=== PATIENT | male | born 1945 | race Caucasian/White ===

== ENCOUNTER 2020-01-14 12:19 | Emergency (ER) | payer MEDICARE, SELFPAY ==
[2020-01-14 12:26] VITALS: BP 141/85; PULSE 56; RESP 16; TEMP 36.6; O2SAT 95; BMI 30.5
--- NOTE | 2020-01-14 12:31 | ED_ITS ---
Entered by Carrie Cantu, acting as scribe for Clifton Pierce DO Jan 14, 2020 12:19 HPI - General Adult General: Chief complaint: General Medical Stated complaint: NUMB ON RIGHT SIDE Time Seen by Provider: 01/14/20 12:39 History of Present Illness: HPI narrative: 74 yo male presents with numbness from the right side of his neck down to his right knee. Pt states that this has been going on for about 45 minutes. Pt states that he has a history of hypertension. He denies any other symtpoms. No difficulty speaking, swallowing or walking. He only reports a mild parathesia in the R arm and leg. Denies visual difficulties or changes. MD complaint: right sided numbness Onset (ago): minute(s) (45) Location: neck, upper extremity and lower extremity Radiation: neck Severity: mild Quality: other (numb) Relieving factors: none Exacerbating factors: none Associated symptoms: Reports no associated symptoms; Deny chest pain, dyspnea, malaise, nausea, rash or vomiting Review of Systems Const: Denies: fever, chills, body aches, change in appetite, fatigue or malaise ENMT: Denies: throat pain, ear pain, nasal discharge or nasal congestion Card: Denies: chest pain, edema, shortness of breath on exertion or shortness of breath when lying down Resp: Denies: shortness of breath, productive cough or non-productive cough GI: Denies: abdominal pain, nausea, vomiting, vomiting blood, coffee grounds in vomit, diarrhea, constipation, bloating, blood in stool or black tarry stool : Denies: flank pain, painful urination, urinary frequency or urinary urgency Skin/Breast: Denies: rash or itching PFSH ED PFSH: Medical History (Updated 01/14/20 @ 16:43 by Clifton Pierce DO) Cancer Hypertension MRSA infection Pneumonia Renal insufficiency Surgical History (Updated 01/14/20 @ 12:58 by Carrie Cantu) H/O hernia repair H/O shoulder surgery History of carpal tunnel surgery History of colon surgery Social History Smoking and tobacco status: former smoker Physical Exam Const: COMMON NORMALS: no apparent distress GENERAL APPEARANCE: cooperative and comfortable ORIENTATION/CONSCIOUSNESS: Yes awake, Yes oriented to person, Yes oriented to place and Yes oriented to time HENMT: COMMON NORMALS: normocephalic, head/scalp atraumatic, hearing grossly normal bilaterally, external ears normal, EAC's normal, TM's normal bilaterally, nasal mucous membranes and turbinates normal, moist oral mucous membranes and oropharynx normal HEAD & SCALP: normocephalic and atraumatic NOSE: nasal mucous membranes and turbinates normal EXTERNAL EAR: Yes external ears normal EXTERNAL AUDITORY CANAL: EAC's normal TYMPANIC MEMBRANE: TM's normal bila terally Eye: COMMON NORMALS: PERRL, EOMs intact bilaterally, conjunctivae normal and no scleral icterus CONJUNCTIVA: Yes conjunctivae normal PUPIL: Yes PERRL Neck/C-Spine: COMMON NORMALS: full ROM, no lymphadenopathy, supple and no JVD Lymph: LYMPHATIC: no lymphadenopathy noted and no lymphedema noted Resp: COMMON NORMALS: normal respiratory effort, no retractions, no use of accessory muscles and clear to auscultation bilaterally AUSCULTATION: clear t o auscultation bilaterally Cardio: COMMON NORMALS: no JVD, regular rate, regular rhythm and no murmurs RATE: regular rate RHYTHM: regular rhythm GI: COMMON NORMALS: soft to palpation and no hepatosplenomegaly AUSCULTATION: Yes normoactive bowel sounds PALPATION: Yes soft, No tender, No guarding and Yes no hepatosplenomegaly Extremity: COMMON NORMALS: normal to inspection, normal capillary refill, no clubbing, cyanosis or edema, no calf tenderness and no pedal edema Neuro: SENSORIUM/ORIENTATION: Yes oriented to person, Yes oriented to place and Yes oriented to time Skin: COMMON NORMALS: no rashes or lesions noted GENERAL SKIN EXAM: no rashes or lesions noted Course Vital Signs: Vital signs: Vital Signs Temperature 97.9 F 01/14/20 12:26 Pulse Rate 72 01/14/20 16:49 Respiratory Rate 15 01/14/20 16:49 Blood Pressure 150/87 01/14/20 16:49 Pulse Oximetry 97 01/14/20 16:49 MDM - General Adult MDM Narrative: Medical decision making narrative: Patient is stroke score of 1 for his paresthesias other than that he is completely normal. He is already on Plavix and a statin. We will continue his Plavix. I had recommended that we g et an echo and carotid we will in the emergency room and then consider discharge she did not want a wait for this. While we are waiting for the techs to come in and see him he decided he would prefer to leave try to encourage him to stay to allow us to complete this and then discharge but he did not wish to. He has no further symptoms at this time return if he has any problems. Lab Data: Labs: Lab Results 01/14/20 01/14/20 Range/Units 12:40 12:40 WBC 9.3 (4.0-10.0) 10^3/ uL RBC 5.16 (4.1-5.3) 10^6/u L Hgb 14.8 (11.7-16.6) g/dL Hct 43.7 (42.0-52.0) % MCV 84.7 (80-94) fL MCH 28.7 (28.0-34.0) pg MCHC 33.9 (30.0-36.0) g/dL RDW 12.9 (12.1-15.1) % Plt Count 253 (130-400) 10^3/c mm MPV 10.5 H (7.4-10.4) fL Neut % (Auto) 60.7 % Lymph % (Auto) 26.8 % White % (Auto) 5.4 % Eos % (Auto) 5.0 % Baso % (Auto) 1.0 % Neut # (Auto) 5.6 (1.8-7.7) 10^3/u L Lymph # (Auto) 2.5 (0.8-4.8) 10^3/u L White # (Auto) 0.5 (0.2-0.9) 10^3/u L Eos # (Auto) 0.5 (0.0-0.8) 10^3/u L Baso # (Auto) 0.1 (0.0-0.1) 10^3/u L Nucleated RBC % (a uto) 0 % Nucleated RBCs # 0.0 /100WBC Sodium 142 (136-145) mmol/L Potassium 3.0 L (3.5-5.1) mmol/L Chloride 99 (98-107) mmol/L Carbon Dioxide 31 H (22-29) mmol/L Anion Gap 15.0 (5-19) BUN 23 (8-23) mg/dL Creatinine 1.6 H (0.7-1.2) mg/dL Glucose 127 H (65-115) mg/dL Calculated Osmolal ity 292 (285-295) mOsm/k g Calcium 10.2 (8.5-10.5) mg/dL Discharge Plan Discharge Patient Disposition: Home, Self-Care Clinical Impression: TIA (transient ischemic attack) Condition: Stable Prescriptions: New clopidogrel 75 mg tablet 75 mg PO DAILY Qty: 30 RF: 0 No Action meloxicam 15 mg Tablet RF: 0 simvastatin 40 mg Tablet 40 mg PO DAILY RF: 0 carvedilol 3.125 mg Tablet 3.125 mg PO BID RF: 0 Zoloft 25 mg Tablet 25 mg PO DAILY RF: 0 losartan-hydrochlorothiazide 100-25 mg Tablet 1 tab PO DAILY RF: 0 Discharge Orders: Discharge Order (Routine); Ordered 01/14/20 Ordered By: Clifton Pierce Referrals: Edgar Blackmon DO [Primary Care Provider] - Discharge Diet: Usual diet Discharge Activity: Increase activity as tolerated Activity Restrictions/Additional Instructions: Because you chose to left the emergency room early we were not able to complete your work-up. Follow-up with your primary care doctor as soon as you are able. Discharge Date/Time: 01/14/20 16:49 Coding Level of Care Code ED Anatomy Professor for Chg Fwd Exam Comprehensive NIH stroke score NIHSS Level Of Consciousness - 1a: 0 Level Of Consciousness Questions - 1b: Both Correct Level Of Consciousness Commands - 1c: Both Correct Best Gaze - 2: Normal Visual Rudolph - 3: No Visual Loss Facial Palsy - 4: Normal Motor Arm Right - 5: No Drift Motor Arm Left - 5: No Drift Motor Leg Right - 6: No Drift Motor Leg Left - 6: No Drift Limb Ataxia - 7: Absent Sensory - 8: Mild To Moderate Loss Best Language - 9: No Aphasia Dysarthia - 10: Normal Extinction And Inattention - 11: 0 Score Total Score: 1 The documentation recorded by the Pepe stevens Kialy, accurately reflects the service I personally performed and the decisions made by Stan lira Curtis L, DO Jan 14, 2020 12:19
[2020-01-14 12:45] VITALS: O2SAT 96
--- NOTE | 2020-01-14 12:57 | CT_ITS ---
WS: [id number] CT HEAD NONCONTRAST HISTORY: L sided numbness TECHNIQUE: Contiguous axial imaging performed through the brain in 2.5 mm imaging. Bone and soft tiss ue windows. Sagittal and coronal reformats reviewed. All CT scans at [facility] use at ast one of these dose optimization techniques: automated exposure control; mA and/or kV adjustment pe r patient size (includes targeted exams where dose is matched to clinical indication); or iterative r econstruction. DLP: 890.2 mGy.cm COMPARISON: 04/19/2019 No acute intracranial hemorrhage, midline shift or mass effect. Mild atrophy and chronic ischemic disease. Remote lacunar infarct LEFT basal ganglia. Ventricles: Normal size with no hydrocephalus. No inferior displacement of cerebellar tonsils. Paranasal sinuses: Small air-fluid level in the LEFT maxillary sinus. Mild bilateral mucoperiosteal t hickening in the ethmoid air cells. Mastoid air cells: Well pneumatized. Calvarium and scalp: Skull is intact with no soft tissue edema or swelling. Moderate atherosclerosis intracranial carotid arteries. CT/CT head wo con* [id number] IMPRESSION: 1. No acute intracranial hemorrhage or edema. 2. Mild atrophy and mild chronic microvascular ischemic disease.
[2020-01-14 13:14] LABS: Basophils # 0.1 10^3/uL (0.0-0.1); Eosinophils # 0.5 10^3/uL (0.0-0.8); Hematocrit 43.7 % (42.0-52.0); Hemoglobin 14.8 g/dL (11.7-16.6); Lymphocytes # 2.5 10^3/uL (0.8-4.8); Lymphocytes % 26.8 %; Mean Corpuscular HGB Conc 33.9 g/dL (30.0-36.0); Mean Corpuscular Hemoglobin 28.7 pg (28.0-34.0); Mean Corpuscular Volume 84.7 fL (80-94); Mean Platelet Volume 10.5 fL (7.4-10.4); Monocytes # 0.5 10^3/uL (0.2-0.9); Monocytes % 5.4 %; Neutrophils # 5.6 10^3/uL (1.8-7.7); Neutrophils % 60.7 %; Nucleated Red Blood Cells % 0 %; Platelet Count 253 10^3/cmm (130-400); Red Blood Count 5.16 10^6/uL (4.1-5.3); Red Cell Distribution Width 12.9 % (12.1-15.1); White Blood Count 9.3 10^3/uL (4.0-10.0)
[2020-01-14 13:23] LABS: Blood Urea Nitrogen 23 mg/dL (8-23); Calcium 10.2 mg/dL (8.5-10.5); Carbon Dioxide 31 mmol/L (22-29); Chloride 99 mmol/L (98-107); Glucose 127 mg/dL (65-115); Osmolality Calculated 292 mOsm/kg (285-295); Sodium 142 mmol/L (136-145)
[2020-01-14 16:49] VITALS: BP 150/87; PULSE 72; RESP 15; O2SAT 97
== END 2020-01-14 16:49 | disposition home or self-care (01) ==
PROVIDERS: Emergency Provider Family Medicine; Family Provider Electrodiagnostic Medicine; PCP Electrodiagnostic Medicine
DX: G45.9 Transient cerebral ischemic attack, unspecified (principal); I10 Essential (primary) hypertension; R29.701 NIHSS score 1; Z79.02 Long term (current) use of antithrombotics/antiplatelets; Z87.891 Personal history of nicotine dependence
CPT/HCPCS: 12345; 70450; 80048; 85025; 99282; 99283

== ENCOUNTER 2020-03-24 08:46 | Emergency (ER) | payer MEDICARE, SELFPAY ==
--- NOTE | 2020-03-24 08:53 | ED_ITS ---
HPI - Extremity Injury (Upper) General: Chief Complaint: Extremity Injury, Upper Stated Complaint: R HAND INJURY Time Seen by Provider: 03/24/20 08:53 Source: patient Mode of arrival: ambulatory Limitations: no limitations History of Present Illness: HPI narrative: Patient comes in with injury to the right hand. Patient reports he fell last night catching himself with outstret ched right hand. Patient reports that his fourth digit hurts a little bit with movement but patient overall is able to flex and move him without difficulty. Patient is concerned due to swelling and is about ready to go out of town so wanted to make sure there was no significant injury prior to leaving town. Patient did report also hitting head but denies any headache or concern of injury. Patient does take Plavix routinely. MD complaint: injury to: hand (right) Review of Systems General: Reports: 10 or more systems reviewed and unremarkable except in HPI and below Musc: Reports: extremity swelling (right hand) [facility] ED PFSH: Medical History (Updated 03/24/20 @ 09:41 by MILAN Hansen) Cancer Hypertension MRSA infection Pneumonia Renal insufficiency Surgical History (Updated 01/14/20 @ 12:58 by Carrie Cantu) H/O hernia repair H/O shoulder surgery History of carpal tunnel surgery History of colon surgery Social History Smoking and tobacco status: former smoker Physical Exam Const: COMMON NORMALS: no acute distress and patient oriented x3 GENERAL APPEARANCE: cooperative HENMT: COMMON NORMALS: normocephalic and Normal external nose present HEAD & SCALP: normal to inspection and normocephalic NOSE: Normal external nose present MOUTH: Normal oral and palatal mucosa present Eye: GENERAL EYE: appearance normal, both eyes and all related structures Neck/C-Spine: COMMON NORMALS: full ROM Chest: COMMONS NORMALS: normal inspection of the chest Resp: COMMON NORMALS: normal respiratory effort EFFORT & INSPECTION: Yes able to speak in complete sentences Cardio: COMMON NORMALS: regular rate and regular rhythm RATE: regular rate RHYTHM: regular rhythm GI: COMMON NORMALS: non-tender Back/Pelvis: COMMON NORMALS: thoracic and lumbar spine normal to inspection Extremity: NARRATIVE EXTREMITY EXAM: Mild swelling to the dorsal hand on the right side, good range of motion of the hand, normal tendon function, distal cap refill. Neuro: COMMON NORMALS: patient oriented x3 and moves all extremities Psych: COMMON NORMALS: mental status grossly normal and cooperative Skin: NARRATIVE SKIN EXAM: Abrasion to the right lateral eyebrow area. Course Vital Signs: Vital signs: Vital Signs Temperature 97.8 F 03/24/20 08:55 Pulse Rate 71 03/24/20 08:59 Respiratory Rate 18 03/24/20 08:55 Blood Pressure 187/91 03/24/20 08:55 Pulse Oximetry 97 03/24/20 08:55 MDM - Extremity Injury (Upper) [facility] Narrative: Medical decision making narrative: Patient comes in for evaluation of injury to the right hand. On exam we note some swelling to the dorsal hand. No obvious tenderness with palpation. Prompt capillary refill is noted. Good tendon function is noted. Differential diagnosis includes fracture, sprain, contusion. X-ray report notes that possible distal fracture of the fifth metacarpal but otherwise arthritic changes. Reviewed this with patient with recommendations with activity as tolerated and elastic wrap. Patient refused Sulaiman wrap and splint stated that it feels fine and he has had it broke before and it is done well. No obvious dislocation or displacement was noted in the bone, recommended follow-up as needed. Discharge Plan Discharge Patient Disposition: Home, Self-Care Clinical Impression: Boxer's metacarpal fracture, neck, closed Qualifiers: Encounter type: initial encounter Qualified Code(s): S62.339A - Displaced fracture of neck of unspecified metacarpal bone, initial encounter for closed fracture Condition: Stable Prescriptions: No Action clopidogrel 75 mg tablet 75 mg PO DAILY Qty: 30 RF: 0 meloxicam 15 mg Tablet RF: 0 simvastatin 40 mg Tablet 40 mg PO DAILY RF: 0 carvedilol 3.125 mg Tablet 3.125 mg PO BID RF: 0 Zoloft 25 mg Tablet 25 mg PO DAILY RF: 0 losartan-hydrochlorothiazide 100-25 mg Tablet 1 tab PO DAILY RF: 0 Discharge Orders: Discharge Order (Routine); Ordered 03/24/20 Ordered By: Malick Poe Referrals: Edgar Blackmon DO [Primary Care Provider] - Discharge Diet: Usual diet Discharge Activity: Increase activity as tolerated Activity Restrictions/Additional Instructions: Activity as tolerated. Wear a elastic wrap or splint as needed. Tylenol as needed for pain. Drink plenty of water with medications. Follow-up with primary care as needed. Return to the ER for worsening symptoms. Coding Level of Care Code ED Rake Operator for Chg Fwd Exam Comprehensive
[2020-03-24 08:55] VITALS: BP 187/91; PULSE 73; RESP 18; TEMP 36.6; O2SAT 97; BMI 30.5
[2020-03-24 08:59] VITALS: PULSE 71
--- NOTE | 2020-03-24 09:00 | XR_ITS ---
WS: [id number] XR hand RT min 3V* [id number] REASON FOR EXAM: injury FINDINGS: Degenerate changes of the distal phalangeal joints are seen. The fifth metacarpal shows anterior angulation and there is evidence of a defects suggesting this is a recent fracture correlation is recommended. There is degenerate changes of the first metacarpal car pal articulation. As well as the first metacarpal phalangeal junction. No additional fractures are seen. XR/XR hand RT min 3V* [id number] IMPRESSION: Deformity of the distal fifth metacarpal with questionable new fracture in this area. Osteoarthritic changes of the hand.
--- NOTE | 2020-03-24 09:09 | PC.NURSE ---
portable xray at bedside
== END 2020-03-24 09:45 | disposition home or self-care (01) ==
PROVIDERS: Emergency Provider Nurse Practitioner Family; Family Provider Electrodiagnostic Medicine; PCP Electrodiagnostic Medicine
DX: S62.336A Displaced fracture of neck of fifth metacarpal bone, right hand, initial encounter for closed fracture (principal); W19.XXXA Unspecified fall, initial encounter; Z79.02 Long term (current) use of antithrombotics/antiplatelets; I10 Essential (primary) hypertension; Z86.14 Personal history of Methicillin resistant Staphylococcus aureus infection; Z87.891 Personal history of nicotine dependence
CPT/HCPCS: 12345; 73130; 99281; 99282

== ENCOUNTER 2020-04-10 08:18 | Emergency (ER) | payer MEDICARE, SELFPAY ==
[2020-04-10 08:25] VITALS: BP 178/90; PULSE 75; RESP 17; TEMP 36.7; O2SAT 96; BMI 28.5
--- NOTE | 2020-04-10 08:35 | W.ED.EXTPRO ---
HPI - Extremity Problem General: Chief complaint: Extremity Problem,Nontraumatic Stated complaint: l leg pain Time Seen by Provider: 04/10/20 08:27 Source: patient Mode of arrival: ambulatory Limitations: no limitations History of Present Illness: HPI Narrative: Patient comes in today with complaints of left buttock pain radiating down into his lower leg with numbness to the foot. Patient moves extremity without difficulty and is able to ambulate well. Patient appears well. Patient appears in mild pain. Patient reports taking and hydrocodone from a previous prescription for surgery that does give him some relief for pain. MD Complaint: extremity pain Review of Systems General: Reports: 10 or more systems reviewed and unremarkable except in HPI and below Musc: Reports: extremity pain PFS ED PFSH: Medical History (Updated 04/10/20 @ 09:23 by MILAN Hansen) Cancer Hypertension MRSA infection Pneumonia Renal insufficiency Surgical History (Updated 01/14/20 @ 12:58 by Carrie Cantu) H/O hernia repair H/O shoulder surgery History of carpal tunnel surgery History of colon surgery Social History Smoking and tobacco status: former smoker Physical Exam Const: COMMON NORMALS: no acute distress and patient oriented x3 GENERAL APPEARANCE: cooperative HENMT: COMMON NORMALS: normocephalic and Normal external nose present HEAD & SCALP: normal to inspection and normocephalic NOSE: Normal external nose present MOUTH: Normal oral and palatal mucosa present Eye: GENERAL EYE: appearance normal, both eyes and all related structures Neck/C-Spine: COMMON NORMALS: full ROM Chest: COMMONS NORMALS: normal inspection of the chest Resp: COMMON NORMALS: normal respiratory effort EFFORT & INSPECTION: Yes able to speak in complete sentences Cardio: COMMON NORMALS: regular rate and regular rhythm RATE: regular rate RHYTHM: regular rhythm GI: COMMON NORMALS: non-tender : COMMON NORMALS: Yes no CVA tenderness BLADDER/KIDNEY EXAM: Yes no CVA tenderness Back/Pelvis: COMMON NORMALS: no CVA tenderness and thoracic and lumbar spine normal to inspection Extremity: COMMON NORMALS: normal to inspection Neuro: COMMON NORMALS: patient oriented x3 and moves all extremities Psych: COMMON NORMALS: mental status grossly normal and cooperative Skin: COMMON NORMALS: no rashes or lesions noted GENERAL SKIN EXAM: no rashes or lesions noted Course Vital Signs: Vital signs: Vital Signs Temperature 98.1 F 04/10/20 08:25 Pulse Rate 75 06/22/20 08:25 Respiratory Rate 17 04/10/20 08:25 Blood Pressure 178/90 04/10/20 08:25 Pulse Oximetry 96 04/10/20 08:25 MDM - Extremity (Nontraumatic) MDM Narrative: Medical decision making narrative: Patient comes in today for complaints of low back pain. Patient states for the last 2 weeks he is having increasing discomfort in his lumbar spine. Patient denies any recent injury. Patient states the pain radiates down his left leg with numbness on the top of his left foot. Exam notes negative leg lift test. Some tenderness noted in the sacroiliac area of the left buttock. Respirations are even lungs are clear to auscultation. Vital signs are normal except for some elevation in blood pressure. Differential diagnosis includes intervertebral disc disease, facet arthropathy, lumbar strain. CT scan of the back noted some facet arthropathy and some foraminal stenosis at L4-L5 and L5-S1. Reviewed exam with patient recommended follow-up with case management for referral to neurosurgery for further treatment and evaluation. Patient reports understanding agreed to plan. Discharge Plan Discharge Patient Disposition: Home, Self-Care Clinical Impression: Left lumbosacral radiculopathy Condition: Stable Prescriptions: New hydrocodone-acetaminophen 5-325 mg tablet 1 tab PO Q8H PRN (Reason: pain (scale score 7-10)) Qty: 14 RF: 0 baclofen 10 mg tablet 10 mg PO Q8H Qty: 20 RF: 0 No Action clopidogrel 75 mg tablet 75 mg PO DAILY Qty: 30 RF: 0 meloxicam 15 mg Tablet RF: 0 simvastatin 40 mg Tablet 40 mg PO DAILY RF: 0 carvedilol 3.125 mg Tablet 3.125 mg PO BID RF: 0 Zoloft 25 mg Tablet 25 mg PO DAILY RF: 0 losartan-hydrochlorothiazide 100-25 mg Tablet 1 tab PO DAILY RF: 0 Discharge Orders: Discharge Order (Routine); Ordered 04/10/20 Ordered By: Malick Poe Referrals: Edgar Blackmon DO [Primary Care Provider] - Discharge Diet: Usual diet Discharge Activity: Increase activity as tolerated Patient Instructions: Lumbar Radiculopathy (ED) Activity Restrictions/Additional Instructions: Activity as tolerated. Drink plenty of water with medications. Follow-up with primary care in 1 week. Case management will contact you with assistance for follow-up with neurosurgery for further evaluation and treatment. Return to the ER for high fever, worsening symptoms or new concerns. Coding Level of Care Code ED Corporate Relations Manager for Chencho Bran Exam Comprehensive
--- NOTE | 2020-04-10 08:41 | CT_ITS ---
WS: [id number] CT LUMBAR SPINE, noncontrast. HISTORY: lumbar radiculopathy, left side TECHNIQUE: Contiguous 2.5 mm axial imaging are performed. Sagittal and coronal reformats are submitte d and reviewed. All CT scans at [facility] use at least one of these dose optimization te chniques: automated exposure control; mA and/or kV adjustment per patient size (includes targeted exa ms where dose is matched to clinical indication); or iterative reconstruction. IV contrast: None DLP: 2745.36 mGy.cm COMPARISON: None available. Mild straightening of the normal lumbar lordosis. Less than 2 mm retrolisthesis of L3. No fractures o r loss of vertebral body height. Disc spaces are well-maintained with mild narrowing of the L5-S1 dis c space. L1-2: Normal. L2-3: Mild annular disc bulging. No stenosis. L3-4: Mild diffuse annular disc bulging without significant stenosis. L4-5: Mild annular disc bulging. Disc osteophyte complex asymmetrically into the LEFT foramen. Modera te LEFT subarticular recess and foraminal stenosis. There is widening of the facet joints and hypertr ophic osteophyte formation. Mild central canal stenosis. L5-S1: Diffuse annular disc bulging with osteophytic ridging. Shallow central disc protrusion. Mild b ilateral foraminal stenosis. Extensive calcification within the abdominal aorta. No aneurysm identified. CT/CT lumbar spine wo con* [id number] IMPRESSION: 1. No lumbar spine fracture. 2. Moderate LEFT subarticular recess and foraminal stenosis at L4-5. Stenosis due to combination of facet arthropathy, disc protrusion and osteophyte complex . 3. Mild bilateral foraminal stenosis at L5-S1 due to disc osteophyte disease.
--- NOTE | 2020-04-10 08:54 | PC.NURSE ---
Patient returned for CT. resting in room now
[2020-04-10] MEDS: ketorolac 30 mg/mL INJ IM (09:34)
[2020-04-10] MEDS: HYDROcodone-acetaminophen 7.5-325 mg Tablet 1 TAB PO (09:34)
[2020-04-10] MEDS: orphenadrine 30 mg/mL Inj 2 mL 60 MG IM (09:35)
--- NOTE | 2020-04-10 10:04 | DCPLANNER ---
nurse healthcare manager was asked to schedule a follow up appointment for patient with neurosurgery. nurse healthcare manager called the [facility] clinic, spoke with Lyn, gave clinic patients information. nurse healthcare manager was told that patients information would be printed and reviewed. Clinic will call clinic with patients information.
[2020-04-10 10:07] VITALS: BP 194/90; PULSE 58; RESP 18; O2SAT 95
--- NOTE | 2020-04-12 15:01 | DCPLANNER ---
alterations manager called [facility], spoke with Kvng, was told that patient wants to see primary care physician before seeing Dr. Vasquez. If patients primary care physician wants patient referred to Dr. Vasquez then patient will have primary care refer patient to Dr. Vasquez.
== END 2020-04-10 10:09 | disposition home or self-care (01) ==
PROVIDERS: Emergency Provider Nurse Practitioner Family; Family Provider Electrodiagnostic Medicine; PCP Electrodiagnostic Medicine
DX: M54.17 Radiculopathy, lumbosacral region (principal); Z79.02 Long term (current) use of antithrombotics/antiplatelets; I10 Essential (primary) hypertension; Z87.891 Personal history of nicotine dependence
CPT/HCPCS: 12345; 72131; 96372; 99281; 99283; J1885; J2360

== ENCOUNTER 2020-04-24 15:38 | Outpatient (CLI) | payer MEDICARE, SELFPAY ==
--- NOTE | 2020-04-24 16:13 | MR_ITS ---
WS: [id number] MRI LUMBAR SPINE NONCONTRAST TECHNIQUE: Sagittal T1, T2 and STIR imaging. Axial T1 and T2 imaging. CLINICAL INFORMATION: BACK PAIN COMPARISON: CT April 10, 2020 FINDINGS: Some images degraded by motion. Mild lumbar curve. No acute compression. No high-grade central canal stenosis. Mild disc bulging L5-S 1. L1-L2: Normal. L2-L3: Mild annular bulging. Slight effacement of ventral thecal sac. Mild facet arthropathy. Spinal canal and foramen are patent. L3-L4: Mild annular bulging with slight narrowing of the subarticular recess bilaterally. Spinal felipe l is patent. Mild right and no significant left foraminal narrowing. Mild facet arthropathy. L4-L5: Shallow left pericentral protrusion with impingement on the left subarticular recess and trave rsing left L5 nerve root. Small left foraminal disc osteophyte protrusion contacts the exiting left L 4 nerve root with mild to moderate left foraminal narrowing. Right foramen is patent. Moderate facet arthropathy with small facet effusions and ligamentum flavum hypertrophy. Mild central canal stenosis . L5-S1: Shallow central disc protrusion with slight effacement of ventral thecal sac. Left eccentric d isc osteophyte ridging with mild left and no significant right foraminal narrowing. Mild facet arthro swapna. Visualized pelvic bony structures: Normal. Paravertebral soft tissues: Normal. MR/MR lumbar spine wo con* [id number] IMPRESSION: 1. Mild lumbar curve. No acute compression. No high-grade central canal stenos is. 2. Small left pericentral protrusion L4-5 impinges the traversing left L5 nerv e root in the subarticular recess.Correlation left L5 nerve root symptoms. 3. Mild to moderate left L4-5 foraminal narrowing due to disc osteophyte compl ex. Contact of the exiting left L4 nerve root. 4. Mild central canal stenosis L4-5 due to disc bulging with facet arthropathy and ligamentum flavum flavum hypertrophy. Small bilateral facet effusions like ly inflammatory or degenerative. 5. Tiny shallow central protrusion L5-S1 without significant nerve root imping ement. Mild left L5-S1 foraminal narrowing at this level. 6. Narrowing of the bilateral subarticular recess L3-4 due to mild disc bulgin g with facet arthropathy and ligamentum flavum flavum hypertrophy. Mild right f oraminal narrowing at this level.
== END 2020-04-24 15:39 | disposition home or self-care (01) ==
LOC: RADWPI 15:43
PROVIDERS: Family Provider Electrodiagnostic Medicine; PCP Electrodiagnostic Medicine; Visit Provider Electrodiagnostic Medicine
DX: M51.26 Other intervertebral disc displacement, lumbar region (principal); M54.16 Radiculopathy, lumbar region; M47.816 Spondylosis without myelopathy or radiculopathy, lumbar region
CPT/HCPCS: 72148

== ENCOUNTER 2020-04-27 13:03 | Outpatient (RCR) | payer MEDICARE, SELFPAY | END 2020-05-19 23:59 | disposition home or self-care (01) | LOC: SPT 13:03 | PROVIDERS: PCP Electrodiagnostic Medicine; Referring Provider Electrodiagnostic Medicine; Visit Provider Electrodiagnostic Medicine | DX: M51.26 Other intervertebral disc displacement, lumbar region (principal); M54.16 Radiculopathy, lumbar region | CPT/HCPCS: 97110; 97161 ==

== ENCOUNTER 2020-05-08 12:57 | Outpatient (CLI) | payer MEDICARE, SELFPAY ==
--- NOTE | 2020-05-08 13:22 | XRR_ITS ---
PROCEDURE INFORMATION: Exam: XR Left Hip with Pelvis when Performed Exam date and time: 05/08/2020 1:25 PM Age: 74 years old Clinical indication: Injury or trauma; Fall; Initial encounter; Blunt trauma (contusions or hematomas); Patient HX: PT fell 2 weeks ago. C/O left hip pain. HX of colon cancer; Additional info: Hip pain, left TECHNIQUE: Imaging protocol: XR Left hip with pelvis when performed. Views: 2 or 3 views. COMPARISON: CT Abdomen/Pelvis o [id number] 08/26/2014 9:44 AM FINDINGS: Bones/joints: Unremarkable. No acute fracture. Soft tissues: Unremarkable. XR/XR hip LT 2-3V wo/w pel* [id number] IMPRESSION: No acute findings.
== END 2020-05-08 12:58 | disposition home or self-care (01) ==
LOC: RADWPI 13:01
PROVIDERS: Family Provider Electrodiagnostic Medicine; PCP Electrodiagnostic Medicine; Visit Provider Electrodiagnostic Medicine
DX: M25.552 Pain in left hip (principal)
CPT/HCPCS: 73502

== ENCOUNTER 2020-07-03 09:38 | Outpatient (CLI) | payer MEDICARE, SELFPAY | END 2020-07-03 09:39 | disposition home or self-care (01) | LOC: WOUND 09:39 | PROVIDERS: Family Provider Electrodiagnostic Medicine; PCP Electrodiagnostic Medicine; Visit Provider Emergency Medicine | DX: L98.8 Other specified disorders of the skin and subcutaneous tissue (principal) | CPT/HCPCS: G0463 ==

== ENCOUNTER 2020-07-07 08:26 | Outpatient (CLI) | payer MEDICARE, SELFPAY ==
--- NOTE | 2020-07-07 09:22 | MR_ITS ---
WS: [id number] MRI CERVICAL SPINE HISTORY: CERVICAL DISC DISORDER, PERIPHERAL NEUROPATHY, LBP THORACIC COMPARISON: None available. Mild straightening with slight increase in the anterior lordosis at C6-7 disc level. Signal within the cord is normal. There is disc desiccation which is mild throughout the cervical spi ne. Mild disc space narrowing osteophytes. Craniocervical junction, C1 and C2 relationship, odontoid process and soft tissues are normal. C2-C3: Normal. C3-C4: Very mild osteophytic ridging. Very small LEFT foraminal disc protrusion is suspected without stenosis. C4-C5: Mild osteophytic ridging. Very mild RIGHT foraminal narrowing due to disc osteophyte disease. C5-C6: Diffuse osteophytic ridging and annular disc bulging. More focal moderate size RIGHT foraminal disc osteophyte causing posterior displacement of the exiting nerve roots. Mild central and LEFT for aminal stenosis with moderate to severe RIGHT foraminal stenosis. C6-C7: Diffuse annular disc bulging with osteophytic ridging. Bilateral foraminal disc osteophyte com plexes. Largest disc osteophyte complex on the RIGHT measures 9.9 mm in length. Moderate to severe ce ntral and bilateral foraminal stenosis. Stenosis greatest on the RIGHT. C7-T1: Mild annular disc bulging. Paraspinal soft tissue are normal. MR/MR cervical spin wo con* [id number] IMPRESSION: 1. Moderate to severe central and bilateral foraminal stenosis at C6-7. Greate st stenosis on the RIGHT due to a large disc protrusion and osteophyte. 2. Moderate to severe RIGHT foraminal stenosis at C5-6 due to osteophyte and d isc protrusion. Mild central LEFT foraminal stenosis at C5-6.
--- NOTE | 2020-07-07 09:22 | MR_ITS ---
WS: [id number] MRI THORACIC SPINE noncontrast. HISTORY: CERVICAL DISC DISORDER, PERIPHERAL NEUROPATHY, thoracic pain. COMPARISON: None available. TECHNIQUE: Multiplanar sequences are performed in sagittal and axial planes. Very mild increase in the upper thoracic kyphosis. Posterior thoracic vertebral body alignment is nor mal. Disc spaces are well preserved. No marrow edema or fracture. No signal abnormality within the co rd. Cord tapers and ends below the L1 level. T1-2: Normal. T2-3: Mild facet arthritis with no stenosis. T3-4: Normal. T4-5: Normal. T5-6: Normal. T6-7: Normal. T7-8: Small amount of fluid in the facet joints without stenosis. T8-9: Mild facet joint arthritis. No stenosis. T9-10: Normal. T10-11: Facet joint arthritis RIGHT as on the RIGHT. Moderate RIGHT foraminal stenosis and mild oste ophyte encroachment into the LEFT foramen. T11-12: Normal. MR/MR thoracic spin wo con* [id number] IMPRESSION: 1. No thoracic spine fracture. 2. Moderate RIGHT foraminal stenosis at T10-11 due to osteophytes and facet ar thritis.
== END 2020-07-07 08:27 | disposition home or self-care (01) ==
LOC: RADSHAW 08:29
PROVIDERS: PCP Electrodiagnostic Medicine; Visit Provider Electrodiagnostic Medicine
DX: M50.90 Cervical disc disorder, unspecified, unspecified cervical region (principal); G62.9 Polyneuropathy, unspecified; M54.12 Radiculopathy, cervical region; M25.511 Pain in right shoulder; M75.41 Impingement syndrome of right shoulder; M48.04 Spinal stenosis, thoracic region; M25.78 Osteophyte, vertebrae; M13.88 Other specified arthritis, other site; M48.02 Spinal stenosis, cervical region
CPT/HCPCS: 72141; 72146

== ENCOUNTER 2020-07-11 08:36 | Outpatient (CLI) | payer MEDICARE, SELFPAY ==
--- NOTE | 2020-07-11 09:01 | IR_ITS ---
WS: [id number] LUMBAR MYELOGRAM HISTORY: BACK PAIN, LUMBAR WITH RADICULOPATHY COMPARISON: MRI lumbar spine 04/24/2020. FLUOROSCOPY TIME: 0.9 minutes. Procedure, risks and complications were explained to the patient. Risks including bleeding, infection , headaches, allergic reaction and seizures. Consent has been obtained. With the patient in prone position the skin over the lumbar region is cleansed with ChloraPrep and an esthetized with lidocaine. 22-gauge spinal needle is inserted into the thecal sac at the appropriate level determined by fluoroscopy. Omnipaque 240; 12 ml is injected slowly under fluoroscopy with no co mplications. Needle bevel is perpendicular to the longitudinal fibers of the dura. Stylet is reinsert ed prior to removal of the needle. Patient tolerated the procedure well. Patient will proceed to CT f or further evaluation. Uncomplicated injection into the thecal sac at the L3 level. Very slight RIGHT convex curvature of th e lumbar spine. Posterior alignment is normal. Mild disc space narrowing at L5-S1. No fracture. Mild encroachment upon the anterior thecal sac at the L4-5 level. With flexion and extension no instabilit y. Moderate atherosclerosis within the abdominal aorta and iliac arteries. IR/[place] lumbar [id number] IMPRESSION: 1. Mild encroachment upon the ventral thecal sac at the L4-5 level. 2. Moderate degenerative disc disease at L5-S1. 3. No fracture. 4. No instability lumbar spine. 5. Moderate atherosclerosis aorta. 6. Bilateral moderate SI joint sacroiliitis with erosions.
--- NOTE | 2020-07-11 09:02 | CT_ITS ---
WS: [id number] CT MYELOGRAM LUMBAR SPINE HISTORY: BACK PAIN, LUMBAR WITH RADICULOPATHY TECHNIQUE: Contiguous 2.5 mm axial imaging performed from T12 through the mid sacral level. Bone and soft tissue windows reviewed. Sagittal and coronal reformats are submitted and reviewed. DLP: 1913.[address] scans at [facility] use at least one of these dose optimization techniques: automat ed exposure control; mA and/or kV adjustment per patient size (includes targeted exams where dose is matched to clinical indication); or iterative reconstruction. COMPARISON: MRI 04/24/2020 Posterior lumbar alignment is normal. Mild disc space narrowing and desiccation at L5-S1. No fracture . Conus tapers normally and ends at the L1-2 level. L1-L2: Normal. L2-L3: Mild annular disc bulging and facet hypertrophy. Mild ligamentum flavum hypertrophy without st enosis. L3-L4: Mild annular disc bulging with mild facet and ligamentum flavum hypertrophy. Very mild encroac hment upon the subarticular recesses without stenosis. L4-L5: Moderate annular disc bulging with mild facet and ligamentum flavum hypertrophy. Moderate LEFT foraminal narrowing due to combination of vertebral body osteophyte, facet disease and disc bulging. There is also moderate narrowing of the LEFT subarticular recess with encroachment upon the L5 nerve root. L5-S1: Central osteophyte encroaching upon the ventral thecal sac. Mild narrowing of the foramen bila terally. Moderate atherosclerosis aorta. There is no aneurysm. Mild sclerosis and irregularity along the SI miriam ints and a few small erosions. CT/CT lumbar spine w con [id number] IMPRESSION: 1. Moderate LEFT subarticular and foraminal stenosis at L4-5 due to combinatio n of disc disease and facet disease. Encroachment upon the LEFT L5 nerve root i n the subarticular recess. Similar to the MRI study. 2. Mild bilateral foraminal narrowing at L5-S1. 3. Mild subarticular recess narrowing at L3-4. 4. Moderate atherosclerosis aorta.
[2020-07-11] MEDS: iohexol 240 mg/mL 50 mL Btl INTRATHECA (09:51)
== END 2020-07-11 08:37 | disposition home or self-care (01) ==
PROVIDERS: PCP Electrodiagnostic Medicine; Visit Provider Electrodiagnostic Medicine
DX: G62.9 Polyneuropathy, unspecified (principal); M54.16 Radiculopathy, lumbar region; M51.26 Other intervertebral disc displacement, lumbar region; M48.061 Spinal stenosis, lumbar region without neurogenic claudication; I70.0 Atherosclerosis of aorta; M51.37 Other intervertebral disc degeneration, lumbosacral region; M46.1 Sacroiliitis, not elsewhere classified; M85.88 Other specified disorders of bone density and structure, other site
CPT/HCPCS: 62304; 72120; 72132; Q9966

== ENCOUNTER 2020-08-27 01:11 | Emergency (ER) | payer MEDICARE, SELFPAY ==
[2020-08-27 01:12] VITALS: BP 158/91; PULSE 70; RESP 18; TEMP 36.5; O2SAT 93; BMI 28.5
[2020-08-27 01:18] VITALS: BP 147/82; PULSE 71; RESP 17; O2SAT 95
--- NOTE | 2020-08-27 01:25 | CTR_ITS ---
PROCEDURE INFORMATION: Exam: CT Lumbar Spine Without Contrast Exam date and time: 08/27/2020 1:47 AM Age: 75 years old Clinical indication: Low back pain; Prior surgery; Surgery date: 3-7 days post-operative; Additional info: Pain, recent surgery TECHNIQUE: Imaging protocol: Computed tomography images of the lumbar spine without contrast. Radiation optimization: All CT scans at this facility use at least one of these dose optimization techniques: automated exposure control; mA and/or kV adjustment per patient size (includes targeted exams where dose is matched to clinical indication); or iterative reconstruction. COMPARISON: CT lumbar spine w con [id number] 2020-07-11 10:16 RADIATION DOSE METRICS: Total DLP (mGy-cm): 2551.06 FINDINGS: Vertebrae: Fluid within small amount of postoperative fluid in the incision, and laminectomy bed. Discs/Spinal canal/Neural foramina: L5-S1 laminectomy decompressing the spinal canal. Diffuse degenerative disc and joint disease with mild moderate L4-L5 foraminal and moderate spinal stenosis. Epidural space: There is some trace epidural fluid/hemorrhage at the L4-S1 level. Soft tissues: Unremarkable. CT/CT lumbar spine wo con* [id number] IMPRESSION: Expected postsurgical spine appearance. Radiation Dose CTDIVOL = (mGy): DLP = 2551.06 (mGy-cm)
--- NOTE | 2020-08-27 01:29 | ED_ITS ---
HPI - Headache General: Chief Complaint: Headache Stated Complaint: NECK PAIN Time Seen by Provider: 08/27/20 01:15 Source: patient Mode of arrival: ambulatory Limitations: no limitations History of Present Illness: HPI Narrative: Mr. Carpenter is a very nice 75-year-old male who comes in complaining of headache. Patient had surgery by Dr. Blackmon at [facility] in [facility] on Friday of this last week. He stayed 1 night in the hospital and was feeling well and was able to be discharged. He is uncertain of the type of surgery he had but does not be lieve any hardware was placed in his back. He states that on Friday, 4 days after the surgery he began to develop a headache that began in the frontal region of his head but then has moved to include the entire portion of his head. He denies any photophobia or phonophobia but has had nauseousness without vomiting. He denies any neck pain or stiffness. He is not had any fevers or chills. Patient states that when he stands up and walks his headache becomes severe but if he sits and lays down his headache completely resolves. They have not checked his incision site until tonight but noticed there was a good deal of clear drainage around it. Currently as the patient is laying flat he denies any pain to me. Patient is scheduled to see Dr. Blackmon next Friday for recheck but did not feel he could wait any longer as the pain became too severe. The patient has not contacted anybody about this headache until tonight. Associated symptoms: Deny chest pain, confusion, diaphoresis, fever(s), lightheadedness, malaise, nausea, pre-syncope, rash, syncope or vomiting Review of Systems Const: Denies: fever(s), chills, body aches, fatigue, malaise or diaphoresis Eyes: Denies: change in vision, blurry vision, photophobia, eye discomfort, eye discharge, eye redness or yellow eyes ENMT: Denies: throat pain, odynophagia, hoarseness, swelling of lips/tongue, ear or mastoid pain, ear discharge, change in hearing or nasal discharge Card: Denies: chest pain, palpitations, irregular heart rhythm, edema, lightheadedness, syncope, pre-syncope, dyspnea on exertion or orthopnea Resp: Denies: dyspnea, productive cough, non-productive cough, wheezing, hemoptysis or chest congestion GI: Denies: abdominal pain, nausea, vomiting, hematemesis, coffee ground emesi s, heartburn, diarrhea, constipation, GI cramping, hematochezia or melena : Denies: flank pain, dysuria, urinary frequency, urinary urgency or hematuria Musc: Denies: neck pain, back pain, extremity pain, extremity swelling, joint pain, joint swelling, joint redness, joint warmth or joint stiffness Skin/Breast: Denies: rash, pruritus, erythema, skin pain or skin tenderness Neuro: Reports: headache(s); Denies: numbness in extremities, weakness in extremities, sensory changes, lack of coordination, difficulty walking, dizziness, vertigo, confusion, Slurred speech present or seizure-like activity Onur/Lymph: Denies: easy bruising, easy bleeding, petechiae, purpura or enlarged lymph nodes All/Imm: Denies: urticaria, throat swelling, tongue swelling, facial swelling or acute wheezing PFSH ED 2 PFSH: Medical History Cancer Hypertension MRSA infection Pneumonia Renal insufficiency Surgical History H/O hernia repair H/O shoulder surgery History of carpal tunnel surgery History of colon surgery Social History Smoking and tobacco status: former smoker Physical Exam Const: COMMON NORMALS: no acute distress, patient oriented x3, no limitations and alert GENERAL APPEARANCE: cooperative HENMT: COMMON NORMALS: normocephalic, atraumatic, external ears normal, EAC's normal and Normal external nose present HEAD & SCALP: normal to inspection, normocephalic and atraumatic FACE & SINUS: normal facial exam and face symmetric NOSE: Normal external nose present and Normal nares present EXTERNAL EAR: Yes external ears normal EXTERNAL AUDITORY CANAL: EAC's normal MOUTH: Normal oral and palatal mucosa present, lip normal and tongue normal Eye: COMMON NORMALS: Equal, round and reactive pupils present and conjunctivae normal GENERAL EYE: appearance normal, both eyes and all related structures ALIGNMENT: Yes alignment normal PERIORBITAL: periorbital findings normal EYELID: eyelids normal CONJUNCTIVA: Yes conjunctivae normal SCLERA: sclerae normal PUPIL: Yes Equal, round and reactive pupils present Neck/C-Spine: COMMON NORMALS: full ROM, no lymphadenopathy, supple, no meningeal signs and no JVD GENERAL: Yes normal visual inspection and Yes trachea midline Chest: COMMONS NORMALS: normal inspection of the chest and normal palpation of entire chest wall Resp: COMMON NORMALS: normal respiratory effort, No retractions, No use of accessory muscles and clear to auscultation bilaterally EFFORT & INSPECTION: Yes able to speak in complete sentences and Yes symmetric chest movement AUSCULTATION: clear to auscultation bilaterally, no crackles, no rales, no rhonchi and no wheezes Cardio: COMMON NORMALS: no JVD, regular rate, regular rhythm, S1 normal heart sound present and S2 normal heart sound present RATE: regular rate RHYTHM: regular rhythm HEART SOUNDS: S1 normal heart sound present, S2 normal heart sound present, no click, no gallops, no murmurs and no rubs GI: COMMON NORMALS: Soft to palpation and No hepatosplenomegaly present PALPATION: Yes Soft to palpation, No Tenderness to palpation present (GI), No Guarding due to palpation present (GI), No Rigid due to palpation, Yes No hepatosplenomegaly present, No Hernia present, No Palpable mass present and No Pulsatile mass present : COMMON NORMALS: Yes no CVA tenderness BLADDER/KIDNEY EXAM: Yes no CVA tenderness Back/Pelvis: COMMON NORMALS: no CVA tenderness, thoracic and lumbar spine normal to inspection, no thoracic nor lumbar tenderness and thoraco-lumbar ROM normal Extremity: COMMON NORMALS: normal to inspection, full ROM, capillary refill normal, no joint enlargement, no clubbing, cyanosis or edema and no calf tenderness Neuro: COMMON NORMALS: patient oriented x3, CN's II-XII intact bilaterally, moves all extremities, no focal motor deficits and no sensory deficits noted SENSORIUM/ORIENTATION: Yes alert MENINGEAL SIGNS: Yes no meningeal signs SPEECH: speech normal Psych: COMMON NORMALS: mental status grossly normal, Normal thought process present, cooperative, normal affect, speech normal and activity/motor behavior normal SPEECH: Yes normal speech THOUGHT PROCESS: Normal thought process present Skin: COMMON NORMALS: no rashes or lesions noted, turgor normal, no jaundice, no petechiae and no mottling GENERAL SKIN EXAM: no rashes or lesions noted and turgor normal Course Vital Signs: Vital signs: Vital Signs Temperature 97.9 F 08/27/20 04:05 Pulse Rate 62 08/27/20 04:05 Respiratory Rate 17 08/27/20 04:05 Blood Pressure 127/77 08/27/20 04:05 Pulse Oximetry 94 08/27/20 04:05 MDM - Headache MDM Narrative: Medical decision making narrative: The case was reviewed with Dr. Blackmon/Mr. Akosua SPAIN who performed the surgery at [facility] and [place]. They state the patient will not need further imaging tonight and likely does have a CSF leak. They state that the patient can be seen in their office on Friday and they will arrange for either a blood patch or a possible surgery to see if a tear can be found. I reviewed this plan with the patient and this is how he wants to proceed. He does not want an MRI here tonight and he does not want to be transferred tonight. He states as long as he is home and flat he is okay. He does have pain medications for his back postoperative. The patient wants to proceed with this plan so I will discharge him to follow-up as directed. He understands to keep trying to move his legs to help avoid a blood clot and he will take his medications as directed. He understands he needs to return here if for any reason this follow-up plan follows through. Mr. South has assured me that they will contact the patient later today during business hours to make arrangements for Friday. Lab Data: Labs: Lab Results 08/27/20 08/27/20 08/27/20 Range/Units 01:26 01:26 02:50 WBC 11.5 H (4.0-10.0) 10^3/ uL RBC 4.90 (4.1-5.3) 10^6/u L Hgb 14.4 (11.7-16.6) g/dL Hct 42.2 (42.0-52.0) % MCV 86.1 (80-94) fL MCH 29.4 (28.0-34.0) pg MCHC 34.1 (30.0-36.0) g/dL RDW 13.8 (12.1-15.1) % Plt Count 263 (130-400) 10^3/c mm MPV 9.5 (7.4-10.4) fL Neut % (Auto) 59.0 % Lymph % (Auto) 26.0 % [place] % (Auto) 7.6 % Eos % (Auto) 2.3 % Baso % (Auto) 0.8 % Neut # (Auto) 6.79 (1.8-7.7) 10^3/u L Lymph # (Auto) 3.0 (0.8-4.8) 10^3/u L [place] # (Auto) 0.9 (0.2-0.9) 10^3/u L Eos # (Auto) 0.3 (0.0-0.8) 10^3/u L Baso # (Auto) 0.1 (0.0-0.1) 10^3/u L Nucleated RBC % (a uto) 0 % Nucleated RBCs # 0.0 /100WBC Sodium 135 L (136-145) mmol/L Potassium 3.0 L (3.5-5.1) mmol/L Chloride 95 L (98-107) mmol/L Carbon Dioxide 30 H (22-29) mmol/L Anion Gap 13.0 (5-19) BUN 28 H (8-23) mg/dL Creatinine 1.2 (0.7-1.2) mg/dL GFR Calculation Not Reportable Glucose 164 H (65-115) mg/dL Calculated Osmolal ity 289 (285-295) mOsm/k g Calcium 9.8 (8.5-10.5) mg/dL Magnesium 1.5 L (1.7-2.3) mg/dL Total Bilirubin 0.7 (0.15-1.2) mg/dL AST 15 (0-40) U/L ALT 34 (0-41) U/L Alkaline Phosphata se 61 (40-130) IU/L Total Protein 6.8 (6.6-8.7) g/dL Albumin 4.1 (3.5-5.2) g/dL Globulin 2.7 (1.3-4.6) g/dL Urine Color Yellow (Yellow) Urine Appearance Clear (CLEAR) Urine pH 5 (5-7) Ur Specific Gravit y 1.015 (1.005-1.030) Urine Protein Neg (Negative) Urine Glucose (UA) Norm (Normal) Urine Ketones Negative (Negative) Urine Blood Neg (Negative) Urine Nitrate Negative (Negative) Urine Bilirubin Neg (Negative) Urine Urobilinogen Norm (Negative) mg/dL Ur Leukocyte Stacy ase Negative (Negative) Imaging Data^: CT Lumbar Spine: Radiologist's impression: [address] [place] [address] CT Scan Report Signed Patient: Ab Carpenter Unit #: [id number] : 1945 Age/Sex: 75 / M ADM Date: 08/27/20 Loc: ER Room/Bed: Attending Dr: Ordering Provider/Ordering MD: Ute Bowers DO Date of Service: 08/27/20 Procedure(s): CT lumbar spine wo con* [id number] Accession Number(s): [id number] Report Number: [id number] PROCEDURE INFORMATION: Exam: CT Lumbar Spine Without Contrast Exam date and time: 08/27/2020 1:47 AM Age: 75 years old Clinical indication: Low back pain; Prior surgery; Surgery date: 3-7 days post-operative; Additional info: Pain, recent surgery TECHNIQUE: Imaging protocol: Computed tomography images of the lumbar spine without contrast. Radiation optimization: All CT scans at this facility use at least one of these dose optimization techniques: automated exposure control; mA and/or kV adjustment per patient size (includes targeted exams where dose is matched to clinical indication); or iterative reconstruction. COMPARISON: CT lumbar spine w con [id number] 2020-07-11 10:16 RADIATION DOSE METRICS: Total DLP (mGy-cm): 2551.06 FINDINGS: Vertebrae: Fluid within small amount of postoperative fluid in the incision, and laminectomy bed. Discs/Spinal canal/Neural foramina: L5-S1 laminectomy decompressing the spinal canal. Diffuse degenerative disc and joint disease with mild moderate L4-L5 foraminal and moderate spinal stenosis. Epidural space: There is some trace epidural fluid/hemorrhage at the L4-S1 level. Soft tissues: Unremarkable. CT/CT lumbar spine wo con* [id number] IMPRESSION: Expected postsurgical spine appearance. Radiation Dose CTDIVOL = (mGy): DLP = 2551.06 (mGy-cm) Dictated By: Andres Barroso MD Signed By: Andres Barroso MD Signed Date/Time: 08/27/20231 DD/ 0 Discharge Plan Discharge Patient Disposition: Home Clinical Impression: Headache after spinal puncture Condition: Stable Prescriptions: No Action clopidogrel 75 mg tablet 75 mg PO DAILY Qty: 30 RF: 0 meloxicam 15 mg Tablet RF: 0 simvastatin 40 mg Tablet 40 mg PO DAILY RF: 0 carvedilol 3.125 mg Tablet 3.125 mg PO BID RF: 0 Zoloft 25 mg Tablet 25 mg PO DAILY RF: 0 losartan-hydrochlorothiazide 100-25 mg Tablet 1 tab PO DAILY RF: 0 hydrocodone-acetaminophen 5-325 mg tablet 1 tab PO Q8H PRN (Reason: pain (scale score 7-10)) Qty: 14 RF: 0 baclofen 10 mg tablet 10 mg PO Q8H Qty: 20 RF: 0 Discharge Orders: Discharge Order (Routine); Ordered 08/27/20 Ordered By: Ute Bowers Referrals: Edgar Blackmon DO [Primary Care Provider] - Discharge Diet: Usual diet Discharge Activity: Limit activity as instructed Patient Instructions: Acute Headache (ED) Activity Restrictions/Additional Instructions: Please return to the ER immediately for any of the signs or symptoms listed on your discharge instruction sheets, worsening/changing of your symptoms, you are not getting better as quickly as expected, or for ANY other cause or concerns. At home remain as flat as possible as you need to prevent your headache. Dr. Blackmon's office will contact you tomorrow or on Friday for an appointment to be seen on Friday for recheck and further evaluation. If your headache worsens, you develop fever, began to vomit, or you have any other concerns please return to the ER immediately for recheck. If for any reason you cannot be seen by Dr. Blackmon on Friday return to the ER for recheck. Discharge Date/Time: 08/27/20 04:05 Coding Level of Care Code ED [place] [employer] for [employer] Fwanne marie Exam Comprehensive
[2020-08-27 01:45] LABS: Basophils # 0.1 10^3/uL (0.0-0.1); Basophils % 0.8 %; Eosinophils # 0.3 10^3/uL (0.0-0.8); Eosinophils % 2.3 %; Hematocrit 42.2 % (42.0-52.0); Hemoglobin 14.4 g/dL (11.7-16.6); Mean Corpuscular HGB Conc 34.1 g/dL (30.0-36.0); Mean Corpuscular Hemoglobin 29.4 pg (28.0-34.0); Mean Corpuscular Volume 86.1 fL (80-94); Mean Platelet Volume 9.5 fL (7.4-10.4); Monocytes # 0.9 10^3/uL (0.2-0.9); Monocytes % 7.6 %; Neutrophils # 6.79 10^3/uL (1.8-7.7); Nucleated Red Blood Cells % 0 %; Platelet Count 263 10^3/cmm (130-400); Red Cell Distribution Width 13.8 % (12.1-15.1); White Blood Count 11.5 10^3/uL (4.0-10.0)
[2020-08-27 01:48] VITALS: BP 136/78; PULSE 70; RESP 16; O2SAT 93
[2020-08-27 01:56] LABS: Alanine Aminotransferase 34 U/L (0-41); Albumin Level 4.1 g/dL (3.5-5.2); Alkaline Phosphatase 61 IU/L (40-130); Aspartate Amino Transferase 15 U/L (0-40); Blood Urea Nitrogen 28 mg/dL (8-23); Calcium 9.8 mg/dL (8.5-10.5); Carbon Dioxide 30 mmol/L (22-29); Chloride 95 mmol/L (98-107); Globulin 2.7 g/dL (1.3-4.6); Glucose 164 mg/dL (65-115); Magnesium 1.5 mg/dL (1.7-2.3); Osmolality Calculated 289 mOsm/kg (285-295); Sodium 135 mmol/L (136-145); Total Bilirubin 0.7 mg/dL (0.15-1.2); Total Protein 6.8 g/dL (6.6-8.7)
[2020-08-27] MEDS: ondansetron 2 mg/ML SDV 2 mL 4 MG IVP (01:56)
[2020-08-27] MEDS: sodium chloride 0.9% 1,000 ML 100 ML IV (01:56)
[2020-08-27 02:18] VITALS: BP 134/72; PULSE 70; RESP 17; O2SAT 94
[2020-08-27] MEDS: magnesium sulfate premix 2 GM/50 ML PIGGYBACK IV (02:36)
[2020-08-27 02:51] VITALS: BP 129/81; PULSE 63; RESP 17; O2SAT 93
[2020-08-27] MEDS: potassium chloride oral liq 20 mEq/15 mL UDC 40 MEQ PO (02:55)
[2020-08-27 02:56] LABS: Add Urine Microscopic? NO
[2020-08-27 02:58] LABS: Bilirubin Urine Neg (Negative); Blood Urine Neg (Negative); Glucose Urine UA Norm (Normal); Ketones Urine Negative (Negative); Leukocyte Esterase Urine Negative (Negative); Nitrate Urine Negative (Negative); Protein Urine Neg (Negative); Specific Gravity, Urine 1.015 (1.005-1.030); Urine Appearance Clear (CLEAR); Urine Color Yellow (Yellow); Urobilinogen Urine Norm (Negative); pH Urine 5 (5-7)
[2020-08-27 04:05] VITALS: BP 127/77; PULSE 62; RESP 17; TEMP 36.6; O2SAT 94
== END 2020-08-27 04:05 | disposition home or self-care (01) ==
PROVIDERS: Emergency Provider Emergency Medicine; PCP Electrodiagnostic Medicine
DX: G97.1 Other reaction to spinal and lumbar puncture (principal); Y84.4 Aspiration of fluid as the cause of abnormal reaction of the patient, or of later complication, without mention of misadventure at the time of the procedure; I10 Essential (primary) hypertension; Z87.891 Personal history of nicotine dependence
CPT/HCPCS: 12345; 72131; 80053; 81003; 83735; 85025; 96361; 96365; 96375; 99283; J0131; J2405; J3475; J7030

== ENCOUNTER 2020-10-06 18:40 | Emergency (ER) | payer MEDICARE, SELFPAY ==
[2020-10-06] VITALS (13 sets, daily range): BP systolic 120–174; BP diastolic 57–94; PULSE 67–107; RESP 11–20; TEMP 36.7; O2SAT 94–99; BMI 27.1
--- NOTE | 2020-10-06 18:57 | XRR_ITS ---
PROCEDURE INFORMATION: Exam: XR Chest, 1 View Exam date and time: 10/06/2020 6:59 PM Age: 75 years old Clinical indication: Other: Weak; Additional info: Weakness TECHNIQUE: Imaging protocol: XR of the chest Views: 1 view. COMPARISON: CR Chest 2 views* [id number] 04/19/2019 7:58 PM FINDINGS: Lungs: There is unchanged hyperinflation with mild fibrosis and scattered calcified granulomata.. No consolidation. Pleural space: Unremarkable. No pleural effusion. No pneumothorax. Heart/Mediastinum: Unchanged borderline cardiomegaly. Bones/joints: No acute abnormality. Bilateral shoulder arthroplasties are noted. XR/XR chest 1V portable [id number] IMPRESSION: No acute findings.
--- NOTE | 2020-10-06 18:58 | ED_ITS ---
HPI - Weakness General: Chief complaint: Weakness Stated complaint: recent spinal surgery/new bp medicine/weakness Time Seen by Provider: 10/06/20 18:57 Source: patient and family Mode of arrival: ambulatory Limitations: no limitations History of Present Illness: HPI Narrative: Mr. Carpenter is a very nice 75-year-old male comes in complaining of weakness and lightheadedness and dizziness. Patient has had a complicated recent past medical history. Since having lumbar surgery done few months ago he had 2 episodes where he had to go back to surgery for spinal fluid leaks. Those have resolved. The patient now has primarily weakness and dizziness when he stands up abruptly. He denies any headaches. Patient denies any fullness or swelling in his back or back pain. Patient denies any syncope or near syncopal type symptoms. He denies fever, chills, headache, chest pain, shortness of breath but does have some mild nausea. Patient has had Covid in the past 6 weeks as well but he has recovered from this. Patient states he just does not feel like he is ever completely recovered from his back surgeries. It was noted in triage as a chief complaint the patient has started a new blood pressure medication but he denies this. He states he is actually started potassium but they have been taking him off his blood pressure medications recently. Associated symptoms: Denies chest pain, chills, confusion, melena, diaphoresis, dysuria, easy bruising, fever(s), headache(s), nausea, syncope or vomiting Review of Systems Const: Reports: fatigue and malaise; Denies: fever(s), chills, body aches or diaphoresis Eyes: Denies: change in vision, blurry vision, photophobia, eye discomfort, eye discharge, eye redness or yellow eyes ENMT: Denies: throat pain, odynophagia, hoarseness, swelling of lips/tongue, ear or mastoid pain, ear discharge, change in hearing or nasal discharge Card: Reports: lightheadedness; Denies: chest pain, palpitations, irregular heart rhythm, edema, syncope, pre-syncope, dyspnea on exertion or orthopnea Resp: Denies: dyspnea, productive cough, non-productive cough, wheezing, hemoptysis or chest congestion GI: Denies: abdominal pain, nausea, vomiting, hematemesis, coffee ground emesis, heartburn, diarrhea, constipation, GI cramping, hematochezia or melena : Denies: flank pain, dysuria, urinary frequency, urinary urgency or hematuria Musc: Denies: neck pain, back pain, extremity pain, extremity swelling, joint pain, joint swelling, joint redness, joint warmth or joint stiffness Skin/Breast: Denies: rash, pruritus, erythema, skin pain or skin tenderness Neuro: Denies: headache(s), numbness in extremities, weakness in extremities, sensory changes, lack of coordination, difficulty walking, dizziness, vertigo, confusion, Slurred speech present or seizure-like activity Onur/Lymph: Denies: easy bruising, easy bleeding, petechiae, purpura or enlarged lymph nodes All/Imm: Denies: urticaria, throat swelling, tongue swelling, facial swelling or acute wheezing PFSH ED PFSH: Medical History (Updated 10/07/20 @ 00:27 by Ute Bowers) Cancer Hypertension MRSA infection Pneumonia Renal insufficiency Surgical History H/O hernia repair H/O shoulder surgery History of carpal tunnel surgery History of colon surgery Social History Smoking and tobacco status: former smoker Physical Exam Const: COMMON NORMALS: no acute distress, patient oriented x3, no limitations and alert GENERAL APPEARANCE: cooperative HENMT: COMMON NORMALS: normocephalic, atraumatic, external ears normal, EAC's normal and Normal external nose present HEAD & SCALP: normal to inspection, normocephalic and atraumatic FACE & SINUS: normal facial exam and face symmetric NOSE: Normal external nose present and Normal nares present EXTERNAL EAR: Yes external ears normal EXTERNAL AUDITORY CANAL: EAC's normal MOUTH: Normal oral and palatal mucosa present, lip normal and tongue normal Eye: COMMON NORMALS: Equal, round and reactive pupils present and conjunctivae normal GENERAL EYE: appearance normal, both eyes and all related structures ALIGNMENT: Yes alignment normal PERIORBITAL: periorbital findings normal EYELID: eyelids normal CONJUNCTIVA: Yes conjunctivae normal SCLERA: sclerae normal PUPIL: Yes Equal, round and reactive pupils present Neck/C-Spine: COMMON NORMALS: full ROM, no lymphadenopathy, supple, no meningeal signs and no JVD GENERAL: Yes normal visual inspection and Yes trachea midline Chest: COMMONS NORMALS: normal inspection of the chest and normal palpation of entire chest wall Resp: COMMON NORMALS: normal respiratory effort, No retractions, No use of accessory muscles and clear to auscultation bilaterally EFFORT & INSPECTION: Yes able to speak in complete sentences and Yes symmetric chest movement AUSCULTATION: clear to auscultation bilaterally, no crackles, no rales, no rhonchi and no wheezes Cardio: COMMON NORMALS: no JVD, regular rate, regular rhythm, S1 normal heart sound present and S2 normal heart sound present RATE: regular rate RHYTHM: regular rhythm HEART SOUNDS: S1 normal heart sound present, S2 normal heart sound present, no click, no gallops, no murmurs and no rubs GI: COMMON NORMALS: Soft to palpation and No hepatosplenomegaly present PALPATION: Yes Soft to palpation, No Tenderness to palpation present (GI), No Guarding due to palpation present (GI), No Rigid due to palpation, Yes No hepatosplenomegaly present, No Hernia present, No Palpable mass present and No Pulsatile mass present : COMMON NORMALS: Yes no CVA tenderness BLADDER/KIDNEY EXAM: Yes no CVA tenderness Back/Pelvis: COMMON NORMALS: no CVA tenderness, thoracic and lumbar spine normal to inspection, no thoracic nor lumbar tenderness and thoraco-lumbar ROM normal Extremity: COMMON NORMALS: normal to inspection, full ROM, capillary refill normal, no joint enlargement, no clubbing, cyanosis or edema and no calf tenderness Neuro: COMMON NORMALS: patient oriented x3, CN's II-XII intact bilaterally, moves all extremities, no focal motor deficits and no sensory deficits noted SENSORIUM/ORIENTATION: Yes alert MENINGEAL SIGNS: Yes no meningeal signs SPEECH: speech normal Psych: COMMON NORMALS: mental status grossly normal, Normal thought process present, cooperative, normal affect, speech normal and activity/motor behavior normal SPEECH: Yes normal speech THOUGHT PROCESS: Normal thought process present Skin: COMMON NORMALS: no rashes or lesions noted, turgor normal, no jaundice, no petechiae and no mottling GENERAL SKIN EXAM: no rashes or lesions noted and turgor normal Course ED course: Orthostatics -positive for significant drop in blood pressure. Vital Signs: Vital signs: Vital Signs Temperature 98.1 F 10/06/20 18:43 Pulse Rate 107 H 10/06/20 23:30 Respiratory Rate 20 H 10/06/20 23:30 Blood Pressure 136/84 10/06/20 23:30 Pulse Oximetry 96 10/06/20 23:30 MDM - Weakness MDM Narrative: Medical decision making narrative: 0015 - Mr. Carpenter feels much better at this time. His repeat orthostatics are normal. He has had his potassium and is now working on his magnesium. Overall he feels tremendously better. ICU no evidence of recurrent leak from his surgery as he has no back pain and he gets no headache with standing. He was orthostatic but again that has resolved after IV fluids. While the patient was here he had what appeared to be a 25 beat run of ventricular tachycardia and then a 15 beat run of ventricular tachycardia. Both of these lasted less than 30 seconds and occurred within the same minute. I had these reviewed by Dr. Shah and as the patient is asymptomatic and his cardiac enzymes have trended down she believes he can safely be discharged home. The patient never had chest pain, palpitations or become syncopal with this. The patient was at rest when it happened. I have recommended and offered to put the patient in the hospital for an echo and for formal cardiac rule out but he refuses. The patient has had a long past several months of being in the hospital and he does not want to be in the hospital if he does not have to be. Even after much insistence and me trying to convince the patient to stay he declines but he does agree to follow-up with Dr. Shah as an outpatient and to have an outpatient echo. His is try to convince him to but he is still refusing. Dr. Shah believes the patient should have his potassium replaced and give some extra magnesium to help maybe prevent another episode of V. tach if it is related to an electrolyte issue. I will go ahead and do so the patient will follow up with his doctor on Friday for recheck. Lab Data: Attestation: I reviewed the patient's lab results. Labs: Lab Results 10/06/20 10/06/20 10/06/20 Range/Units 19:20 19:20 19:20 WBC 10.3 H (4.0-10.0) 10^3/ uL RBC 3.54 L (4.1-5.3) 10^6/u L Hgb 10.5 L (11.7-16.6) g/dL Hct 31.3 L (42.0-52.0) % MCV 88.4 (80-94) fL MCH 29.7 (28.0-34.0) pg MCHC 33.5 (30.0-36.0) g/dL RDW 14.5 (12.1-15.1) % Plt Count 299 (130-400) 10^3/c mm MPV 10.1 (7.4-10.4) fL Neut % (Auto) 62.8 % Lymph % (Auto) 25.5 % Pickett % (Auto) 6.3 % Eos % (Auto) 2.5 % Baso % (Auto) 1.0 % Neut # (Auto) 6.48 (1.8-7.7) 10^3/u L Lymph # (Auto) 2.6 (0.8-4.8) 10^3/u L Pickett # (Auto) 0.7 (0.2-0.9) 10^3/u L Eos # (Auto) 0.3 (0.0-0.8) 10^3/u L Baso # (Auto) 0.1 (0.0-0.1) 10^3/u L Nucleated RBC % (a uto) 0 % Nucleated RBCs # 0.0 /100WBC Sodium 141 (136-145) mmol/L Potassium 3.1 L (3.5-5.1) mmol/L Chloride 103 (98-107) mmol/L Carbon Dioxide 31 H (22-29) mmol/L Anion Gap 10.1 (5-19) BUN 11 (8-23) mg/dL Creatinine 1.0 (0.7-1.2) mg/dL GFR Calculation Not Reportable Glucose 122 H (65-115) mg/dL Calculated Osmolal ity 293 (285-295) mOsm/k g Calcium 9.4 (8.5-10.5) mg/dL Magnesium 1.7 (1.7-2.3) mg/dL Total Bilirubin 0.5 (0.15-1.2) mg/dL AST 15 (0-40) U/L ALT 14 (0-41) U/L Alkaline Phosphata se 60 (40-130) IU/L Troponin T Baselin e 34 H (0-15) ng/L Troponin T 120 Min [place] (0-15) ng/L Delta Troponin T (0-10) ABS# Total Protein 6.0 L (6.6-8.7) g/dL Albumin 4.0 (3.5-5.2) g/dL Globulin 2.0 (1.3-4.6) g/dL Lipase 25 (13-60) U/L TSH 2.90 (0.27-4.20) uIU/ mL Urine Color (Yellow) Urine Appearance (CLEAR) Urine pH (5-7) Ur Specific Gravit y (1.005-1.030) Urine Protein (Negative) Urine Glucose (UA) (Normal) Urine Ketones (Negative) Urine Blood (Negative) Urine Nitrate (Negative) Urine Bilirubin (Negative) Urine Urobilinogen (Negative) mg/dL Ur Leukocyte Stacy ase (Negative) Urine RBC (0-2) /hpf Urine WBC (0-5) /hpf Ur Squamous Epith Cells (0-5) /hpf Amorphous Sediment Urine Bacteria (NONE) /hpf 10/06/20 10/06/20 Range/Units 20:58 21:26 WBC (4.0-10.0) 10^3/ uL RBC (4.1-5.3) 10^6/u L Hgb (11.7-16.6) g/dL Hct (42.0-52.0) % MCV (80-94) fL MCH (28.0-34.0) pg MCHC (30.0-36.0) g/dL RDW (12.1-15.1) % Plt Count (130-400) 10^3/c mm MPV (7.4-10.4) fL Neut % (Auto) % Lymph % (Auto) % Pickett % (Auto) % Eos % (Auto) % Baso % (Auto) % Neut # (Auto) (1.8-7.7) 10^3/u L Lymph # (Auto) (0.8-4.8) 10^3/u L Pickett # (Auto) (0.2-0.9) 10^3/u L Eos # (Auto) (0.0-0.8) 10^3/u L Baso # (Auto) (0.0-0.1) 10^3/u L Nucleated RBC % (a uto) % Nucleated RBCs # /100WBC Sodium (136-145) mmol/L Potassium (3.5-5.1) mmol/L Chloride (98-107) mmol/L Carbon Dioxide (22-29) mmol/L Anion Gap (5-19) BUN (8-23) mg/dL Creatinine (0.7-1.2) mg/dL GFR Calculation Glucose (65-115) mg/dL Calculated Osmolal ity (285-295) mOsm/k g Calcium (8.5-10.5) mg/dL Magnesium (1.7-2.3) mg/dL Total Bilirubin (0.15-1.2) mg/dL AST (0-40) U/L ALT (0-41) U/L Alkaline Phosphata se (40-130) IU/L Troponin T Baselin e (0-15) ng/L Troponin T 120 Min [place] 32.36 H (0-15) ng/L Delta Troponin T -1.64 L (0-10) ABS# Total Protein (6.6-8.7) g/dL Albumin (3.5-5.2) g/dL Globulin (1.3-4.6) g/dL Lipase (13-60) U/L TSH (0.27-4.20) uIU/ mL Urine Color Yellow (Yellow) Urine Appearance Clear (CLEAR) Urine pH 7 (5-7) Ur Specific Gravit y 1.005 (1.005-1.030) Urine Protein Neg (Negative) Urine Glucose (UA) Norm (Normal) Urine Ketones Negative (Negative) Urine Blood Neg (Negative) Urine Nitrate Negative (Negative) Urine Bilirubin Neg (Negative) Urine Urobilinogen Norm (Negative) mg/dL Ur Leukocyte Stacy ase Negative (Negative) Urine RBC 0-4 H (0-2) /hpf Urine WBC 0-4 H (0-5) /hpf Ur Squamous Epith Cells 0-4 H (0-5) /hpf Amorphous Sediment Not Reportable Urine Bacteria Trace (NONE) /hpf Imaging Data^: CXR: Attestation: I personally reviewed and interpreted this imaging study as follows: My impression: No acute cardiopulmonary findings. EKG Data^: EKG 1: Attestation: I personally reviewed and interpreted this EKG as follows: EKG interpretation date: 10/06/20 EKG interpretation time: 19:14 Interpretation: Normal sinus rhythm 67 beats a minute, no blocks, normal intervals, nonspecific ST and T wave changes. Findings consistent with pre vious. EKG 2: Attestation: I personally reviewed and interpreted this EKG as follows: EKG interpretation date: 10/06/20 EKG interpretation time: 21:18 Interpretation: Normal sinus rhythm at 69 beats a minute, no blocks, normal intervals, nonspecific ST-T wave changes. Similar to previous. Discharge Plan Discharge Patient Disposition: Home Clinical Impression: Dehydration, Orthostasis, Ventricular tachycardia, nonsustained Condition: Stable Prescriptions: No Action simvastatin 40 mg Tablet 40 mg PO DAILY@08 RF: 0 sertraline [Zoloft] 25 mg Tablet 50 mg PO DAILY@21 RF: 0 losartan-hydrochlorothiazide 100-25 mg Tablet 1 tab PO DAILY@08 RF: 0 gabapentin 600 mg tablet See Rx Instructions .ROUTE .COMPLEX RF: 0 Tylenol Extra Strength 500 mg Tablet 500 - 1,000 mg PO PRN RF: 0 potassium chloride 20 mEq tablet,ER particles/crystals 20 meq PO DAILY@08 RF: 0 amlodipine 10 mg tablet See Rx Instructions .ROUTE .COMPLEX RF: 0 ibuprofen 200 mg Tablet 400 mg PO PRN RF: 0 hydralazine 50 mg tablet See Rx Instructions .ROUTE .COMPLEX RF: 0 hydrocodone-acetaminophen 5-325 mg tablet 1 tab PO Q4H PRN (Reason: Pain) RF: 0 clopidogrel 75 mg tablet 75 mg PO DAILY@21 RF: 0 Discharge Orders: Discharge ED (Routine); Ordered 10/06/20 Ordered By: Ute Bowers Referrals: Edgar Blackmon DO [Primary Care Provider] - 1-3 days Lupe Shah MD [Physician] - 1-3 days Discharge Diet: Advance as tolerated Discharge Activity: Increase activity as tolerated Patient Instructions: Dehydration (ED), Hypokalemia (ED) Activity Restrictions/Additional Instructions: Please return to the ER immediately for any of the signs or symptoms listed on your discharge instruction sheets, worsening/changing of your symptoms, you are not getting better as quickly as expected, or for ANY other cause or concerns. You are leaving without complete evaluation of your heart as I have informed you. I have recommended that you come into the hospital for further evaluation of your heart but you have refused choosing to leave against my medical advice. You are more than welcome to return at any time for recheck and for further evaluation and care should you change you change your mind. You have been offered admission for further evaluation and care of your heart and of course certain types of heart problems can be life-threatening but you have declined. If you develop chest pain, shortness of breath, palpitations, you pass out or nearly pass out, become sweaty for no reason, you have any other symptoms or concerns or you simply change your mind you are more than welcome to return at any time for further evaluation and care. Be certain to follow-up with Dr. Blackmon as soon as possible. I will have our case management team set you up for an outpatient Holter monitor, outpatient echo and a follow-up appointment with Dr. Shah for a soon as possible. Coding Level of Care Code ED Clam Shucking Machine Tender for Chencho Fwd Exam Comprehensive
--- NOTE | 2020-10-06 18:58 | ECG_ITS ---
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 Measurements Intervals [place] Rate: 67 P: 75 MS: 173 QRS: 54 QRSD: 100 T: 49 QT: 399 QTc: 424 Interpretive Statements SINUS RHYTHM NONSPECIFIC ST & T-WAVE ABNORMALITY Compared to ECG 03/24/2019 12:32:38 Sinus bradycardia no longer present T-wave abnormality still present Electronically Signed On 10-07-2020 8:39:02 LEGAL RESEARCHER by Lupe Shah M.D. [id number]
--- NOTE | 2020-10-06 19:00 | PC.NURSE ---
Report from ANIBAL Low
[2020-10-06] MEDS: sodium chloride 0.9% 1,000 ML 999 ML IV ×2 (19:34→20:51)
[2020-10-06] MEDS: ondansetron 2 mg/ML SDV 2 mL 4 MG IVP (19:34)
[2020-10-06 19:37] LABS: Basophils # 0.1 10^3/uL (0.0-0.1); Eosinophils # 0.3 10^3/uL (0.0-0.8); Eosinophils % 2.5 %; Hematocrit 31.3 % (42.0-52.0); Hemoglobin 10.5 g/dL (11.7-16.6); Lymphocytes # 2.6 10^3/uL (0.8-4.8); Lymphocytes % 25.5 %; Mean Corpuscular HGB Conc 33.5 g/dL (30.0-36.0); Mean Corpuscular Hemoglobin 29.7 pg (28.0-34.0); Mean Corpuscular Volume 88.4 fL (80-94); Mean Platelet Volume 10.1 fL (7.4-10.4); Monocytes # 0.7 10^3/uL (0.2-0.9); Monocytes % 6.3 %; Neutrophils # 6.48 10^3/uL (1.8-7.7); Neutrophils % 62.8 %; Nucleated Red Blood Cells % 0 %; Platelet Count 299 10^3/cmm (130-400); Red Blood Count 3.54 10^6/uL (4.1-5.3); Red Cell Distribution Width 14.5 % (12.1-15.1); White Blood Count 10.3 10^3/uL (4.0-10.0)
--- NOTE | 2020-10-06 19:38 | PC.NURSE ---
Provided urinal for UA specimen.
[2020-10-06 19:58] LABS: Troponin(5th) Baseline 34 ng/L (0-15)
[2020-10-06 20:05] LABS: Alanine Aminotransferase 14 U/L (0-41); Alkaline Phosphatase 60 IU/L (40-130); Anion Gap 10.1 (5-19); Aspartate Amino Transferase 15 U/L (0-40); Blood Urea Nitrogen 11 mg/dL (8-23); Calcium 9.4 mg/dL (8.5-10.5); Carbon Dioxide 31 mmol/L (22-29); Chloride 103 mmol/L (98-107); Glucose 122 mg/dL (65-115); Lipase 25 U/L (13-60); Magnesium 1.7 mg/dL (1.7-2.3); Osmolality Calculated 293 mOsm/kg (285-295); Potassium 3.1 mmol/L (3.5-5.1); Sodium 141 mmol/L (136-145); Total Bilirubin 0.5 mg/dL (0.15-1.2)
--- NOTE | 2020-10-06 20:27 | PC.NURSE ---
per pt slight improvement with nausea
[2020-10-06] MEDS: potassium chloride ER 20 mEq Tablet 40 MEQ PO (20:41)
[2020-10-06] MEDS: sodium chloride 0.9% 1,000 ML 100 ML IV (20:41)
--- NOTE | 2020-10-06 20:45 | PC.NURSE ---
Provider stated okay to st cath for UA sample. Notified pt. Pt stated I will try to go Urinal provide
--- NOTE | 2020-10-06 20:58 | ECG_ITS ---
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 Measurements Intervals [place] Rate: 69 P: 74 NM: 168 QRS: 52 QRSD: 104 T: 20 QT: 403 QTc: 433 Interpretive Statements SINUS RHYTHM NONSPECIFIC ST & T-WAVE ABNORMALITY Compared to ECG 10/06/2020 19:14:58 No significant changes Electronically Signed On 10-07-2020 8:49:53 DROP PRESS HAND by Lupe Shah M.D. [email or web address]/store/[id number]
--- NOTE | 2020-10-06 21:00 | PC.NURSE ---
Pt up in the hallway needing to use the bathroom
[2020-10-06 21:08] LABS: Bilirubin Urine Neg (Negative); Blood Urine Neg (Negative); Glucose Urine UA Norm (Normal); Ketones Urine Negative (Negative); Leukocyte Esterase Urine Negative (Negative); Nitrate Urine Negative (Negative); Protein Urine Neg (Negative); Specific Gravity, Urine 1.005 (1.005-1.030); Urine Appearance Clear (CLEAR); Urine Color Yellow (Yellow); Urobilinogen Urine Norm (Negative); pH Urine 7 (5-7)
[2020-10-06 21:14] LABS: Add Urine Culture? No; Bacteria Urine TRACE /hpf; RBC Urine 0-4 /hpf (0-2); Squamous Epithelial Cell Urine 0-4 /hpf (0-5); WBC Urine 0-4 /hpf (0-5)
--- NOTE | 2020-10-06 21:21 | PC.NURSE ---
EKG done at 2119 and shown to ER doctor
[2020-10-06 21:58] LABS: Troponin 5 2HR 32.36 ng/L (0-15)
[2020-10-06 22:08] LABS: Troponin 5 2HR Delta -1.64 ABS# (0-10)
--- NOTE | 2020-10-06 23:50 | PC.NURSE ---
Pt stated he need something for anxiety and stated i need to go home, I don't want to stay . Notified provider and received order for Ativan PO.
[2020-10-06] MEDS: potassium chloride premix 100 ML 50 MEQ IV (23:57)
[2020-10-06] MEDS: LORazepam 1 mg Tablet PO (23:57)
[2020-10-07] VITALS: BP 148/61; PULSE 63; RESP 18; O2SAT 93
--- NOTE | 2020-10-07 00:06 | PC.NURSE ---
Pt refused medication IV. Pt stated I'm ready to go I don't want it. Reviewed with and pt he would have to sign out AMA. Pt's stated take the pill and get the K+.
[2020-10-07 00:30] VITALS: BP 123/84; PULSE 66; RESP 18; O2SAT 93
[2020-10-07 01:00] VITALS: PULSE 64; RESP 18; O2SAT 94
[2020-10-07 02:04] VITALS: BP 141/73; PULSE 69; RESP 18; O2SAT 94
--- NOTE | 2020-10-09 14:37 | DCPLANNER ---
corridor redevelopment manager had message to schedule an outpatient echo cardiogram and a 48 hour halter monitor for patient. corridor redevelopment manager faxed order to centralized scheduling and [facility], will call for appointment information.
--- NOTE | 2020-10-12 10:02 | DCPLANNER ---
remarketing manager had message to schedule a follow up appointment for patient with [facility]. remarketing manager called [facility], unable to speak with Sirisha, left message for her about a follow up appointment for patient. remarketing manager will call about referral next week.
--- NOTE | 2020-10-18 13:35 | DCPLANNER ---
Patient has a follow appointment with [facility] on Saturday, November 07, 2020 at 9:[address] Shah. Clinic will call patient with appointment information. Patient has a halter monitor appointment scheduled for Sunday, October 25, 2020 at 2:30. Clinic will call patient with appointment information.
--- NOTE | 2020-12-01 14:30 | DCPLANNER ---
Patient had a follow up appointment scheduled with heart care and a follow up for testing - patient did not attend appointments.
== END 2020-10-07 02:06 | disposition home or self-care (01) ==
PROVIDERS: Emergency Provider Emergency Medicine; PCP Electrodiagnostic Medicine
DX: I95.1 Orthostatic hypotension (principal); I47.2 Ventricular tachycardia; E86.0 Dehydration; Z79.02 Long term (current) use of antithrombotics/antiplatelets; I10 Essential (primary) hypertension; Z87.891 Personal history of nicotine dependence
CPT/HCPCS: 12345; 36415; 71045; 80053; 81001; 83690; 83735; 84443; 84484; 85025; 93005; 96365; 96366; 96375; 96376; 99283; 99284; J2405; J3475; J3480; J7030

== ENCOUNTER 2020-10-18 06:00 | Outpatient (RCR) | payer MEDICARE, SELFPAY | END 2020-10-19 23:59 | disposition home or self-care (01) | LOC: SPT 06:00 | PROVIDERS: PCP Electrodiagnostic Medicine; Referring Provider Orthopaedic Surgery; Visit Provider Orthopaedic Surgery | DX: R29.898 Other symptoms and signs involving the musculoskeletal system (principal); M54.16 Radiculopathy, lumbar region | CPT/HCPCS: 97162 ==

== ENCOUNTER 2020-10-20 06:00 | Outpatient (RCR) | payer MEDICARE, SELFPAY | END 2020-11-06 23:00 | disposition home or self-care (01) | LOC: SPT 06:00 | PROVIDERS: PCP Electrodiagnostic Medicine; Referring Provider Orthopaedic Surgery; Visit Provider Orthopaedic Surgery | DX: R29.898 Other symptoms and signs involving the musculoskeletal system (principal); M54.16 Radiculopathy, lumbar region | CPT/HCPCS: 97110; G0283 ==

== ENCOUNTER 2020-11-04 12:20 | Emergency (ER) | payer MEDICARE, SELFPAY ==
[2020-11-04 12:20] VITALS: RESP 18
--- NOTE | 2020-11-04 12:30 | CTR_ITS ---
PROCEDURE INFORMATION: Exam: CT Head Without Contrast Exam date and time: 11/04/2020 12:46 PM Age: 75 years old Clinical indication: Injury or trauma; Fall; Unconscious; Additional info: AMS TECHNIQUE: Imaging protocol: Computed tomography of the head without contrast. Radiation optimization: All CT scans at this facility use at least one of these dose optimization techniques: automated exposure control; mA and/or kV adjustment per patient size (includes targeted exams where dose is matched to clinical indication); or iterative reconstruction. COMPARISON: CT head wo con* [id number] 01/14/2020 1:12 PM RADIATION DOSE METRICS: Total DLP (mGy-cm): 871.1 FINDINGS: Brain: 3.8 cm right subdural hematoma producing subfalcine and transtentorial herniation with 1.8 cm midline shift to the left. Emergent neurosurgical consultation recommended.Additional subarachnoid hemorrhage . Small-vessel ischemic change. Cerebral ventricles: Asymmetric caliber of the ventricles, without hydrocephalus. Bones/joints: No acute calvarial injury. Paranasal sinuses: No sinus fluid. Mastoid air cells: No mastoid effusion. Soft tissues: Scalp hematoma overlying the right posterior vertex. CT/CT head wo con* [id number] IMPRESSION: 1. 3.8 cm right subdural hematoma producing subfalcine and transtentorial herniation with 1.8 cm midline shift to the left. Emergent neurosurgical consultation recommended. 2. Additional subarachnoid hemorrhage . The aforementioned findings initiated a critical results communication pathway. An addendum will be issued at the time of clincian notification. Radiation Dose CTDIVOL = (mGy): DLP = 871.1 (mGy-cm)
--- NOTE | 2020-11-04 12:31 | CTR_ITS ---
PROCEDURE INFORMATION: Exam: CT Cervical Spine Without Contrast Exam date and time: 11/04/2020 12:33 PM Age: 75 years old Clinical indication: Injury or trauma; Fall; Blunt trauma TECHNIQUE: Imaging protocol: Computed tomography images of the cervical spine without contrast. Radiation optimization: All CT scans at this facility use at least one of these dose optimization techniques: automated exposure control; mA and/or kV adjustment per patient size (includes targeted exams where dose is matched to clinical indication); or iterative reconstruction. COMPARISON: MR cervical spin wo con* [id number] 07/07/2020 9:36 AM RADIATION DOSE METRICS: Total DLP (mGy-cm): 756.08 FINDINGS: Tubes, catheters and devices: Endotracheal tube. Bones/joints: No acute bony injury in the visualized cervical spine. 2 mm anterolisthesis of C7 on T1. 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 Discs/Spinal canal/Neural foramina: Multilevel degenerative change with disc space narrowing and asymmetric right-sided foraminal encroachment. Calcified disc bulging at the C6-C7 level.Note that assessment of disc, spinal cord, and nerve root pathology is limited in the absence of intrathecal contrast. Oropharynx: Tonsillar calcifications. Thyroid: Poorly defined hypodensities and calcification in the asymmetrically enlarged right thyroid lobe. Lungs: Unremarkable apices as visualized. Vasculature: Prominent vascular calcification. Soft tissues: Ligamentous calcification. CT/CT cervical spin wo con* [id number] IMPRESSION: 1. No acute bony injury in the visualized cervical spine. 2. 2 mm anterolisthesis of C7 on T1. 3. Additional findings as described above. COMMENTS: Consistent with the [employer]'s Incidental Findings Committee white paper (J Am Hayes Radiol 2015): In patients aged 35 years and older with an incidental thyroid nodule equal to or greater than 1.[address], MRI or extrathyroidal US, further evaluation with dedicated thyroid US is recommended for patients with normal life expectancy and without comorbidities. For smaller nodules without suspicious features, no further evaluation or follow up is recommended. Radiation Dose CTDIVOL = (mGy): DLP = 756.08 (mGy-cm)
[2020-11-04 12:33] VITALS: BP 252/124; PULSE 78; RESP 25; O2SAT 100; BMI 28.7
--- NOTE | 2020-11-04 12:51 | XRR_ITS ---
PROCEDURE INFORMATION: Exam: XR Chest, 1 View Exam date and time: 11/04/2020 12:52 PM Age: 75 years old Clinical indication: Device placement; Other: Ett and ng placement; Additional info: Intubation TECHNIQUE: Imaging protocol: XR of the chest Views: 1 view. COMPARISON: CR XR chest 1V portable [id number] 10/06/2020 6:57 PM FINDINGS: Tubes, catheters and devices: An endotracheal tube is present with its tip about 6.5 cm above the lily. A nasogastric tube is not seen. Lungs: Unremarkable. No consolidation. Pleural space: Unremarkable. No pleural effusion. No pneumothorax. Heart/Mediastinum: Unremarkable. No cardiomegaly. Bones/joints: Unremarkable. XR/XR chest 1V portable [id number] IMPRESSION: 1. Satisfactory position of the endotracheal tube. 2. No significant cardiopulmonary abnormality.
[2020-11-04 12:58] VITALS: BP 252/124; PULSE 50; RESP 15; O2SAT 100
--- NOTE | 2020-11-04 14:35 | ED_ITS ---
HPI - Trauma General: Chief Complaint: Trauma Stated Complaint: unresponsive Time Seen by Provider: 11/04/20 12:35 Source: EMS Mode of arrival: EMS Limitations: altered mental status History of Present Illness: HPI narrative: Patient is a 75-year-old male who was at the [facility] [place] and apparently fell backwards hitting the occipital part of his head on the floor. This happened about 15 to 20 minutes ago. He was initially responsive and took some ibuprofen after he fell but he later became unresponsive and an ambulance was called. The ambulance crew states that the patient had been unresponsive throughout with a GCS of 3. He therefore loaded him and rushed him to the emergency department. His family is not here yet and he is prior medical history is unknown. His CODE STATUS is unknown. MD complaint: fall Review of Systems General: Reports: ROS unobtainable due to mental status [facility] ED PFSH: Medical History (Updated 11/04/20 @ 14:52 by Phu Manning MD, [facility] [place]) Cancer Hypertension MRSA infection Pneumonia Renal insufficiency Surgical History (Reviewed 11/04/20 @ 14:37 by Phu Manning MD, [facility] [place]) H/O hernia repair H/O shoulder surgery History of carpal tunnel surgery History of colon surgery Social History (Reviewed 11/04/20 @ 14:37 by Phu Manning MD, [facility] [place]) Smoking and tobacco status: former smoker Physical Exam Narrative: EXAM NARRATIVE: Gentleman brought in by EMS who is unresponsive. GCS of 3. Pupils fixed and dilated bilaterally. He has an abrasion to the occ ipital region. HENMT: HEAD & SCALP: abrasion Eye: PUPIL: Yes Dilated pupils bilaterally and Yes Fixed pupils bilaterally Chest: COMMONS NORMALS: normal inspection of the chest and normal palpation of entire chest wall Resp: COMMON NORMALS: clear to auscultation bilaterally EFFORT & INSPECTION: Yes grunting AUSCULTATION: clear to auscultation bilaterally Cardio: COMMON NORMALS: regular rate, regular rhythm, S1 normal heart sound present and S2 normal heart sound present RATE: regular rate RHYTHM: regular rhythm HEART SOUNDS: S1 normal heart sound present and S2 normal heart sound present GI: COMMON NORMALS: Normal to inspection, nondistended, normoactive bowel sounds present and Soft to palpation PALPATION: Yes Soft to palpation Back/Pelvis: COMMON NORMALS: thoracic and lumbar spine normal to inspection Extremity: COMMON NORMALS: normal to inspection Neuro: TRESSA COMA SCALE: document GCS findings Tressa coma scale eye opening: None Tressa coma scale verbal response: None Tressa coma scale motor response: None Tressa coma scale total score: 3 SENSORIUM/ORIENTATION: Yes stuporous Procedures Intubation Time out performed: Yes sedative: Etomidate Mg Given: 30 paralytic: Succinylcholine Mg Given: 200 Laryngoscope: Eamon Assist Device Used: other (Video-assisted) ET Tube Size: 8 ET Tube Uncuffed: Yes Tube Secured Depth (cm): 24 Tube Secured Location: lips Tube Placement Confirmation: visualized tube passing through cords, equal breath sounds bilaterally, no breath sounds over epigastrium and confirmation by capnometry Patient Tolerated Procedure: well Intubation Complications: none MDM - Trauma MDM Narrative: Medical decision making narrative: 75-year-old male with a right subdural hemorrhage following a fall. He arrived with a GCS of 3 and needed to be emergently intubated. With his clinical status and head CT scan findings he was transferred to [facility] in [place] for further evaluation and management. He was placed on an esmolol drip due to the hypertensive emergency, he was given a dose of intravenous Keppra 1 g. Medical Records: Attestation: I reviewed the patient's medical records. Imaging Data^: Other CT: Radiologist's impression: [address] [address] [address] Scan Report Signed Patient: Ab Carpenter #: [id number] : 1945Acct#:[id number] Age/Sex: 75 / MADM Date: 11/04/20 [facility] Attending Dr: Ordering Provider/Ordering MD: Phu Manning MD, [facility] [place] Date of Service: 11/04/20 Procedure(s): CT cervical spin wo con* [id number] Accession Number(s): [id number] Report Number: [id number] PROCEDURE INFORMATION: Exam: CT Cervical Spine Without Contrast Exam date and time: 11/04/2020 12:33 PM Age: 75 years old Clinical indication: Injury or trauma; Fall; Blunt trauma TECHNIQUE: Imaging protocol: Computed tomography images of the cervical spine without contrast. Radiation optimization: All CT scans at this facility use at least one of these dose optimization techniques: automated exposure control; mA and/or kV adjustment per patient size (includes targeted exams where dose is matched to clinical indication); or iterative reconstruction. COMPARISON: MR cervical spin wo con* [id number] 07/07/2020 9:36 AM RADIATION DOSE METRICS: Total DLP (mGy-cm): 756.08 FINDINGS: Tubes, catheters and devices: Endotracheal tube. Bones/joints: No acute bony injury in the visualized cervical spine. 2 mm anterolisthesis of C7 on T1. 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 Discs/Spinal canal/Neural foramina: Multilevel degenerative change with disc space narrowing and asymmetric right-sided foraminal encroachment. Calcified disc bulging at the C6-C7 level.Note that assessment of disc, spinal cord, and nerve root pathology is limited in the absence of intrathecal contrast. Oropharynx: Tonsillar calcifications. Thyroid: Poorly defined hypodensities and calcification in the asymmetrically enlarged right thyroid lobe. Lungs: Unremarkable apices as visualized. Vasculature: Prominent vascular calcification. Soft tissues: Ligamentous calcification. CT/CT cervical spin wo con* [id number] IMPRESSION: 1. No acute bony injury in the visualized cervical spine. 2. 2 mm anterolisthesis of C7 on T1. 3. Additional findings as described above. COMMENTS: Consistent with the [employer]'s Incidental Findings Committee white paper (J Am Hayes Radiol 2015): In patients aged 35 years and older with an incidental thyroid nodule equal to or greater than 1.[address], MRI or extrathyroidal US, further evaluation with dedicated thyroid US is recommended for patients with normal life expectancy and without comorbidities. For smaller nodules without suspicious features, no further evaluation or follow up is recommended. Radiation Dose CTDIVOL = (mGy): DLP = 756.08 (mGy-cm) Dictated By:Curtis Vyas MD Signed By:Curtis Vyas MDSigned Date/Time:11/04/201314 DD/ 131 CXR: Attestation: I personally reviewed and interpreted this imaging study as follows: Radiologist's impression: [id number] [place] [address] XRay Report Signed Patient: Ab Carpenter #: [id number] : 3Acct#:[id number] Age/Sex: 75 / MADM Date: 11/04/20 Loc: ERRoom/Bed: Attending Dr: Ordering Provider/Ordering MD: Phu Manning MD, [facility] [place] Date of Service: 11/04/20 Procedure(s): XR chest 1V portable [id number] Accession Number(s): [id number] Report Number: [id number] PROCEDURE INFORMATION: Exam: XR Chest, 1 View Exam date and time: 11/04/2020 12:52 PM Age: 75 years old Clinical indication: Device placement; Other: Ett and ng placement; Additional info: Intubation TECHNIQUE: Imaging protocol: XR of the chest Views: 1 view. COMPARISON: CR XR chest 1V portable [id number] 10/06/2020 6:57 PM FINDINGS: Tubes, catheters and devices: An endotracheal tube is present with its tip about 6.5 cm above the lily. A nasogastric tube is not seen. Lungs: Unremarkable. No consolidation. Pleural space: Unremarkable. No pleural effusion. No pneumothorax. Heart/Mediastinum: Unremarkable. No cardiomegaly. Bones/joints: Unremarkable. XR/XR chest 1V portable [id number] IMPRESSION: 1. Satisfactory position of the endotracheal tube. 2. No significant cardiopulmonary abnormality. Dictated By:Jimbo Johnston Signed By:Sander Johnston Date/Time:11/04/201330 DD/ 1331 CT Head: Radiologist's impression: [place] [address] CT Scan Report Signed with Mely Patient: Ab Carpenter #: [id number] : 3Acct#:[id number] Age/Sex: 75 / MADM Date: 11/04/20 Loc: ERRoom/Bed: Attending Dr: Ordering Provider/Ordering MD: Phu Manning MD, [facility] [place] Date of Service: 11/04/20 Procedure(s): CT head wo con* [id number] Accession Number(s): [id number] Report Number: [id number]/CT head wo con* [id number] THIS REPORT CONTAINS FINDINGS THAT MAY BE CRITICAL TO PATIENT CARE. The findings were verbally communicated via telephone conference with PHU Neff at 1:17 PM TRANSPORTATION MAINTENANCE WORKER on 11/04/2020. The findings were acknowledged and understood. Radiation Dose CTDIVOL = (mGy): DLP = 871.1 (mGy-cm) Addendum Dictated By: Curtis Vyas MD Addendum Signed By: Curtis Vyas MDSigned Date/Time:11/04/20 1318 Addendum Cosigned By: PROCEDURE INFORMATION: Exam: CT Head Without Contrast Exam date and time: 11/04/2020 12:46 PM Age: 75 years old Clinical indication: Injury or trauma; Fall; Unconscious; Additional info: AMS TECHNIQUE: Imaging protocol: Computed tomography of the head without contrast. Radiation optimization: All CT scans at this facility use at least one of these dose optimization techniques: automated exposure control; mA and/or kV adjustment per patient size (includes targeted exams where dose is matched to clinical indication); or iterative reconstruction. COMPARISON: CT head wo con* [id number] 01/14/2020 1:12 PM RADIATION DOSE METRICS: Total DLP (mGy-cm): 871.1 FINDINGS: Brain: 3.8 cm right subdural hematoma producing subfalcine and transtentorial herniation with 1.8 cm midline shift to the left. Emergent neurosurgical consultation recommended.Additional subarachnoid hemorrhage . Small-vessel ischemic change. Cerebral ventricles: Asymmetric caliber of the ventricles, without hydrocephalus. Bones/joints: No acute calvarial injury. Paranasal sinuses: No sinus fluid. Mastoid air cells: No mastoid effusion. Soft tissues: Scalp hematoma overlying the right posterior vertex. CT/CT head wo con* [id number] IMPRESSION: 1. 3.8 cm right subdural hematoma producing subfalcine and transtentorial herniation with 1.8 cm midline shift to the left. Emergent neurosurgical consultation recommended. 2. Additional subarachnoid hemorrhage . The aforementioned findings initiated a critical results communication pathway. An addendum will be issued at the time of clincian notification. Radiation Dose CTDIVOL = (mGy): DLP = 871.1 (mGy-cm) Dictated By:Crutis Vyas MD Signed By:Curtis Vyas MDSigned Date/Time:11/04/201309 DD/ 09 Critical Care Time Critical Care Time: Critical Care Time: Yes Total Critical Care Time: 45 Attestation: This case had a high probability of a clinically significant, sudden, or life threatening deterioration of this patient's condition which required my full and direct attention, intervention and personal management. Discharge Plan Discharge Patient Disposition: Xfer Short-Term Hosp Clinical Impression: Acute subdural hematoma, Hypertensive emergency Discharge Orders: Transfer Out of Facility (Order); Ordered 11/04/20 Ordered By: Phu Manning Referrals: Edgar Blackmon DO [Primary Care Provider] - Coding Level of Care Code ED Channel Rougher for Chg Fwd Exam Comprehensive
== END 2020-11-04 13:23 | disposition short-term general hospital (02) ==
PROVIDERS: Emergency Provider Family Medicine; PCP Electrodiagnostic Medicine
DX: S06.5X9A Traumatic subdural hemorrhage with loss of consciousness of unspecified duration, initial encounter (principal); I16.1 Hypertensive emergency; W18.39XA Other fall on same level, initial encounter; I10 Essential (primary) hypertension; Z87.891 Personal history of nicotine dependence
CPT/HCPCS: 12345; 31500; 51702; 70450; 71045; 72125; 94002; 94799; 96365; 96367; 96375; 99282; 99291; J0330; J1953; J2001; J3490